=== PATIENT | male | born 1950 | race Caucasian/White ===

== ENCOUNTER 2017-02-14 10:34 | Emergency (ER) | payer OTHER ==
--- NOTE | 2017-02-14 10:51 | ED GI/GU/ABDOMINAL COMPLAINT ---
History of Present Illness General Chief Complaint: Male Genitourinary Problems Stated Complaint: URINE RETENTION PER PT Source: patient, old records Exam Limitations: no limitations Vital Signs & Intake/Output Vital Signs & Intake/Output Vital Signs Date Time Temp Pulse Resp B/P B/P Pulse O2 O2 Flow FiO2 Mean Ox Delivery Rate 02/14 1229 144/64 02/14 1112 79 178/86 100 Room Air 02/14 1040 97.0 125 22 220/103 98 Allergies Coded Allergies: lactose (UNKNOWN 02/14/17) penicillin G (RASH 02/14/17) Reconcile Medications No Known Home Medications Triage Note: PER PT UNABLE TO VOID X 5 HRS, YESTERDAY HAD SOME BURNING AND FREQUENCY BUT DID NOT THINK ANYTHING OF IT. PT VERY ANXIOUS AND PACING IN TRIAGE Triage Nurses Notes Reviewed? yes HPI: Patient is a slight that he had dysuria associated with urinary frequency. Patient woke up at 5:00 in the morning and urinated but has been unable to urinate since then. Patient has drank 3 cups of coffee and multiple glass of water and feels that he needs to be but nothing is coming out. He is now getting a pressure sensation over his bladder. There is no radiation. There are no aggravating or mitigating factors. He rates the pressure sensation at 7 out of 10. Past History Travel History Traveled to [place] past 21 day No Medical History Any Pertinent Medical History? none Neurological: NONE EENT: NONE Cardiovascular: NONE Respiratory: NONE Gastrointestinal: NONE Hepatic: NONE Renal: NONE Musculoskeletal: NONE Psychiatric: NONE Endocrine: NONE Surgical History Surgical History: non-contributory Psychosocial History What is your primary language Serbian Tobacco Use: Never used ETOH Use: denies use Illicit Drug Use: denies illicit drug use Family History Hx Contributory? No Review of Systems Review of Systems Constitutional: Reports: no symptoms. EENTM: Reports: no symptoms. Respiratory: Reports: no symptoms. Cardiovascular: Reports: no symptoms. GI: Reports: see HPI, abdominal pain. Genitourinary: Reports: see HPI, hesitation. Musculoskeletal: Reports: no symptoms. Skin: Reports: no symptoms. Neurological/Psychological: Reports: no symptoms. Hematologic/Endocrine: Reports: no symptoms. Immunologic/Allergic: Reports: no symptoms. All Other Systems: Reviewed and Negative Physical Exam Physical Exam General Appearance: well developed/nourished, alert, awake, anxious, mild distress Head: atraumatic, normal appearance Eyes: Bilateral: PERRL, EOMI. Ears, Nose, Throat, Mouth: hearing grossly normal, moist mucous membrane Neck: normal inspection, supple, full range of motion Respiratory: normal breath sounds, chest non-tender, no respiratory distress, lungs clear Cardiovascular: regular rate/rhythm, normal peripheral pulses Gastrointestinal: normal bowel sounds, soft, non-tender, no organomegaly Back: normal inspection, normal range of motion, NO CVA TENDERNESS Extremities: normal range of motion Neurologic/Psych: no motor/sensory deficits, awake, alert, oriented x 3, normal gait, normal mood/affect Skin: intact, normal color, warm/dry Core Measures ACS in differential dx? No Severe Sepsis Present: No Septic Shock Present: No Progress Differential Diagnosis: urinary retention, UTI/pyelo Plan of Care: Orders Procedure Date/time Status Regular Diet 02/14 D Active Yoder, Insertion/Removal/Asses 02/14 1050 Active CULTURE,URINE 02/14 1050 Active URINALYSIS 02/14 1050 Complete Laboratory Tests 02/14/17 1100: Urine Color YEL, Urine Clarity CLEAR, Urine pH 6.5, Ur Specific [place] 1.010, Urine Protein NEG, Urine Ketones NEG, Urine Nitrite NEG, Urine Bilirubin NEG, Urine Urobilinogen 0.2, Ur Leukocyte Esterase NEG, Ur Microscopic SEDIMENT EXAMINED, Urine RBC 25-50 H, Urine WBC RARE, Urine Hemoglobin MOD H, Urine Glucose NEG Microbiology 02/14 1100 URINE ROUT: Urine Culture - RECD Initial ED EKG: none Comments: 600 mL of urine obtained from full catheter. Patient feeling much better. Patient's blood pressure has improved. Departure Departure Disposition: HOME OR SELF CARE Condition: Stable Clinical Impression Primary Impression: Urinary retention Referrals: DAVID RIVAS MD PATIENT HAS NO PRIMARY CARE DR (PCP/Family) Additional Instructions: RETURN IF SYMPTOMS WORSEN OR FOR ANY CONCERNS Departure Forms: Customer Survey General Discharge Information Prescriptions: Current Visit Scripts No Known Home Medications
[2017-02-14 12:29] VITALS: BP 144/64
== END 2017-02-14 12:40 ==
LOC: ERH 10:34
DX: R33.9 Retention of urine, unspecified (principal)
CPT/HCPCS: 81001; 87086

== ENCOUNTER 2018-02-16 22:10 | Emergency (ER) | payer OTHER ==
[~2018-02-16] VITALS: Ht 185.4 cm; Wt 102.1 kg
[~2018-02-16 22:10] MED LIST: TAMSULOSIN HCL0.4 M1 PO
--- NOTE | 2018-02-17 00:01 | ED GENERAL ADULT ---
History of Present Illness General Chief Complaint: Facial or Head Injury Stated Complaint: OUTSIDE TO TURN GENERATOR ON & SOMETHING HIT HEAD Source: patient, family, old records Exam Limitations: no limitations Vital Signs & Intake/Output Vital Signs & Intake/Output Vital Signs Date Time Temp Pulse Resp B/P B/P Pulse O2 O2 Flow FiO2 Mean Ox Delivery Rate 02/16 2234 200/92 02/16 2230 97.6 91 18 177/112 96 Room Air ED Intake and Output 02/17 0000 02/16 1200 Intake Total Output Total Balance Patient 225 lb Weight Weight Estimated Measurement Method Allergies Coded Allergies: lactose (UNKNOWN 02/14/17) penicillin G (RASH 02/14/17) Reconcile Medications Tamsulosin HCl 0.4 MG CAP.ER.24H 1 CAP PO DAILY BLADDER HEALTH (Reported) Triage Note: RECEIVED 67 YO MALE C/O HE WENT OUTSIDE TO TURN GENERATOR ON DURING STORM AND SOMETHING HIT HIM IN THE HEAD WITH WINGS. PT THINKS IT MAY HAVE BEEN A BAT. NO BITE CAMPBELL NOTED, PT HAS BEEN SCRATCHING HEAD X 2 DAYS, SO UNKNOWN IF THERE IS ANY NEW SCRATCH CAMPBELL. Triage Nurses Notes Reviewed? yes HPI: Patient went outside in the dark to turn on the generator. Patient felt something bump in the head and then fly off. Patient is unsure if it was a bat but he knows that he would need rabies prophylaxis if it is a bat. Patient denies any injury. There is no loss of consciousness. There is no headache. There is no blurry vision. Past History Travel History Traveled to [place] past 21 day No Medical History Any Pertinent Medical History? see below for history Neurological: NONE EENT: NONE Cardiovascular: NONE Respiratory: NONE Gastrointestinal: LACTOSE INTOLERANCE Hepatic: NONE Renal: benign prost hyperplasia Musculoskeletal: NONE Psychiatric: NONE Endocrine: NONE Blood Disorders: NONE Cancer(s): NONE Surgical History Surgical History: non-contributory Psychosocial History What is your primary language Portuguese Tobacco Use: Never used ETOH Use: denies use Illicit Drug Use: denies illicit drug use Family History Hx Contributory? No Review of Systems Review of Systems Constitutional: Reports: no symptoms. Respiratory: Reports: no symptoms. Cardiovascular: Reports: no symptoms. GI: Reports: no symptoms. Immunologic/Allergic: Reports: no symptoms. Physical Exam Physical Exam General Appearance: well developed/nourished, alert, awake, anxious Head: atraumatic, normal appearance Eyes: Bilateral: PERRL, EOMI. Respiratory: normal breath sounds, chest non-tender, no respiratory distress, lungs clear Cardiovascular: regular rate/rhythm, normal peripheral pulses Neurologic/Psych: no motor/sensory deficits, awake, alert, oriented x 3, normal gait, normal mood/affect Core Measures ACS in differential dx? No CVA/TIA Diagnosis: No Sepsis Present: No Sepsis Focused Exam Completed? No Progress Differential Diagnoses I considered the following diagnoses in my evaluation of the patient: [Possible bat exposure] Plan of Care: Current Medications Sig/Ziggy Start time Last Medication Dose Stop Time Status Admin Rabies Immune 2,000 UNITS ONCE ONE 02/17 2345 AC Globulin 02/17 2346 (Rabies Immune Globlulin Inj) Rabies Vaccine 1 SYR ONCE ONE 02/17 2345 AC (Rabies (Vaccine) 02/17 2346 Inj (1ML)) Initial ED EKG: none Comments: Discussed with the patient that he does not require the radius prophylaxis. Patient is very concerned about rabies. Patient's primary care physician was contacted and she recommends the rabies prophylaxis just in case. Departure Departure Disposition: HOME OR SELF CARE Condition: Stable Clinical Impression Primary Impression: Encounter for prophylactic rabies immune globin Referrals: Unknown (PCP) Additional Instructions: Today would be considered a 0. Return on day 3, 7 and 14 for your additional 3 shots. Return sooner for any concerns. Departure Forms: Customer Survey General Discharge Information Critical Care Note Critical Care Note Critical Care Time: non-applicable
[2018-02-17 01:29] VITALS: BP 185/98
== END 2018-02-17 01:31 ==
LOC: ERH 22:10
DX: Z20.3 Contact with and (suspected) exposure to rabies (principal)
CPT/HCPCS: 90376; 90471

== ENCOUNTER 2018-02-19 22:13 | Emergency (ER) | payer OTHER ==
[2018-02-19 22:20] VITALS: BP 186/100
--- NOTE | 2018-02-19 22:46 | ED GENERAL ADULT ---
History of Present Illness General Chief Complaint: General Adult Stated Complaint: 2ND ROUND FOR RABIES VACCINE Source: patient Exam Limitations: no limitations Vital Signs & Intake/Output Vital Signs & Intake/Output Vital Signs Date Time Temp Pulse Resp B/P B/P Pulse O2 O2 Flow FiO2 Mean Ox Delivery Rate 02/19 2220 97.0 88 20 186/100 98 Room Air Allergies Coded Allergies: lactose (UNKNOWN 02/14/17) penicillin G (RASH 02/14/17) Reconcile Medications Tamsulosin HCl 0.4 MG CAP.ER.24H 1 CAP PO DAILY BLADDER HEALTH (Reported) Triage Note: PER PT HAD 1ST SHOT ON THURSDAY EARLY AM ?0100. HERE FRO 2NND SHOT Triage Nurses Notes Reviewed? yes Onset: Abrupt Duration: day(s): (3), better Timing: single episode today Injury Environment: home Severity: mild HPI: 6 he 7-year-old male presents for his second rabies shot. He was seen here 3 days ago after a bat flew into his head. He is unsure if he was bitten. Patient denies any side effects to the initial rabies vaccine he's feeling well he has no concerns. Past History Travel History Traveled to [place] past 21 day No Medical History Any Pertinent Medical History? see below for history Neurological: NONE EENT: NONE Cardiovascular: NONE Respiratory: NONE Gastrointestinal: LACTOSE INTOLERANCE Hepatic: NONE Renal: benign prost hyperplasia Musculoskeletal: NONE Psychiatric: NONE Endocrine: NONE Blood Disorders: NONE Cancer(s): NONE Surgical History Surgical History: non-contributory Psychosocial History What is your primary language Pakistani Tobacco Use: Never used Family History Hx Contributory? No Review of Systems Review of Systems Constitutional: Reports: no symptoms. EENTM: Reports: no symptoms. Respiratory: Reports: no symptoms. Cardiovascular: Reports: no symptoms. GI: Reports: no symptoms. Genitourinary: Reports: no symptoms. Musculoskeletal: Reports: no symptoms. Skin: Reports: no symptoms. Neurological/Psychological: Reports: no symptoms. Hematologic/Endocrine: Reports: no symptoms. Immunologic/Allergic: Reports: no symptoms. All Other Systems: Reviewed and Negative Physical Exam Physical Exam General Appearance: well developed/nourished, no apparent distress, alert, awake Head: atraumatic, normal appearance Eyes: Bilateral: normal appearance, EOMI. Ears, Nose, Throat: hearing grossly normal Neck: normal inspection, full range of motion Respiratory: no respiratory distress Extremities: normal inspection, normal range of motion, no edema Neurologic/Psych: no motor/sensory deficits, awake, alert, oriented x 3, normal gait Skin: intact, normal color, warm/dry Core Measures ACS in differential dx? No CVA/TIA Diagnosis: No Sepsis Present: No Sepsis Focused Exam Completed? No Progress Differential Diagnoses I considered the following diagnoses in my evaluation of the patient: [Post exposure prophylaxis of rabies] Plan of Care: Current Medications Sig/Ziggy Start time Last Medication Dose Stop Time Status Admin Rabies Vaccine 1 SYR ONCE ONE 02/19 2245 AC (Rabies (Vaccine) 02/19 2246 Inj (1ML)) Patient is here for his second rabies vaccine. He is feeling well he has no concerns she denies any side effects from initial vaccination. Rabies vaccine ordered. The patient return on day 7 discussed return precautions patient agrees the plan Initial ED EKG: none Departure Departure Disposition: HOME OR SELF CARE Condition: Stable Clinical Impression Primary Impression: Rabies, need for prophylactic vaccination against Referrals: Patient Has No Primary Care Dr (PCP/Family) Additional Instructions: return for your 3rd rabies shot on day 7. return sooner with any concerns. Departure Forms: Customer Survey General Discharge Information Critical Care Note Critical Care Note Critical Care Time: non-applicable
== END 2018-02-19 22:58 ==
LOC: ERH 22:13
DX: Z20.3 Contact with and (suspected) exposure to rabies (principal)
CPT/HCPCS: 90471; 99281

== ENCOUNTER 2018-05-08 08:43 | Observation (INO) | payer OTHER ==
[~2018-05-08] VITALS: Ht 185.4 cm; Wt 104.3 kg
[~2018-05-08 08:43] MED LIST changes: +COZAAR50 M1 PO
--- NOTE | 2018-05-08 09:24 | ED GI/GU/ABDOMINAL COMPLAINT ---
History of Present Illness General Chief Complaint: Abdominal Pain/Flank Pain Stated Complaint: LFT ABD PAIN Source: patient Exam Limitations: no limitations Vital Signs & Intake/Output Vital Signs & Intake/Output Vital Signs Date Time Temp Pulse Resp B/P B/P Pulse O2 O2 Flow FiO2 Mean Ox Delivery Rate 05/08 1454 100.8 77 18 165/81 96 05/08 0852 97.1 78 18 188/96 98 Room Air Allergies Coded Allergies: lactose (LACTOSE INTOLERANT 05/08/18) penicillin G (RASH 02/14/17) Reconcile Medications Acetaminophen (Unknown Strength) TABLET (Unknown Dose) PO ONCE PAIN (Reported ) Bismuth Subsalicylate (Pepto-Bismol) 262 MG/15 ML ORAL.SUSP 45 ML PO ONCE GI (Reported) Lactobacillus Acidophilus (Probiotic) 10 BILLION CELL CAPSULE 1 CAP PO DAILY PROBIOTIC (Reported) Losartan Potassium 100 MG TABLET 1 TAB PO DAILY BP (Reported) Multivitamin/Iron/Folic Acid (Centrum Adults Tablet) 18 MG IRON-400 MCG TABLET 1 TAB PO DAILY SUPPLEMENT (Reported) Oxymetazoline HCl (Afrin) 0.05 % MIST 2 SPRAY NASB ONCE NASAL CONGESTION ( Reported) Tamsulosin HCl (Flomax) 0.4 MG CAP.ER.24H 2 CAP PO QHS (Reported) Triage Note: PT STATES THAT HE STARTED WITH LUQ PAIN THAT RADIATES INTO HIS BACK THAT STARTED LAST PM, DENIES URINARY SYMPTOMS . POSITIVE NAUSEA Triage Nurses Notes Reviewed? yes Onset: Abrupt Duration: day(s): (1), constant, getting worse Timing: recent history Quality/Severity: moderate Location: left flank, left lower quadrant HPI: 67-year-old male with no history of abdominal surgery comes in with left lower abdominal pain and left flank pain. Patient reports her symptoms started on the plane ride home from [place]. He is unsure whether or not the pain was sudden onset. It is sharp. Severe nature. Continuous. Patient has not had a bowel movement today. Denies any urinary symptoms. Nothing seems to make the symptoms better or worse. He comes in for further evaluation. He denies any chest pain shortness of breath. (Elpidio Currie) Past History Travel History Traveled to [place] past 21 day No Medical History Any Pertinent Medical History? see below for history Neurological: NONE EENT: NONE Cardiovascular: NONE Respiratory: NONE Gastrointestinal: LACTOSE INTOLERANCE Hepatic: NONE Renal: benign prost hyperplasia Musculoskeletal: NONE Psychiatric: NONE Endocrine: NONE Blood Disorders: NONE Cancer(s): NONE Surgical History Surgical History: non-contributory Psychosocial History What is your primary language Hungarian Tobacco Use: Never used ETOH Use: denies use Illicit Drug Use: denies illicit drug use Family History Hx Contributory? No (Elpidio Currie) Review of Systems Review of Systems Constitutional: Reports: no symptoms. EENTM: Reports: no symptoms. Respiratory: Reports: no symptoms. Cardiovascular: Reports: no symptoms. GI: Reports: see HPI. Genitourinary: Reports: no symptoms. Musculoskeletal: Reports: no symptoms. Skin: Reports: no symptoms. Neurological/Psychological: Reports: no symptoms. Hematologic/Endocrine: Reports: no symptoms. Immunologic/Allergic: Reports: no symptoms. All Other Systems: Reviewed and Negative (Elpidio Currie) Physical Exam Physical Exam General Appearance: well developed/nourished, alert, awake, mild distress Head: atraumatic, normal appearance Eyes: Bilateral: normal appearance. Ears, Nose, Throat, Mouth: hearing grossly normal, moist mucous membrane Neck: normal inspection Respiratory: no respiratory distress Gastrointestinal: soft, tenderness Back: normal inspection Extremities: normal range of motion Neurologic/Psych: awake, alert, oriented x 3 Skin: intact, normal color Core Measures ACS in differential dx? No Sepsis Present: No Sepsis Focused Exam Completed? No (Elpidio Currie) Progress Differential Diagnosis: appendicitis, cholecystitis, diverticulitis, gastritis, ischemic bowel, pancreatitis, prostatitis, PUD/GERD, SBO, ureterolithiasis, UTI/ pyelo Plan of Care: Orders Procedure Date/time Status TROPONIN LEVEL 05/08 955 Complete EKG 05/08 924 Active LIPASE 05/08 919 Complete LACTIC ACID 05/08 919 Complete COMPREHENSIVE METABOLIC PANEL 05/08 919 Complete CBC WITHOUT DIFFERENTIAL 05/08 919 Complete URINALYSIS 05/08 851 Complete Laboratory Tests 05/08/18 1219: Lactic Acid Cancelled 05/08/18 0955: Anion Gap 6, Estimated GFR > 60, BUN/Creatinine Ratio 24.3, Glucose 101 H, Lactic Acid 1.9, Calcium 9.8, Total Bilirubin 0.5, AST 23, ALT 26, Alkaline Phosphatase 67, Troponin I < 0.01, Total Protein 7.0, Albumin 4.3, Globulin 2.7, Albumin/Globulin Ratio 1.6, Lipase 49, CBC w Diff MAN DIFF ORDERED, RBC 4.94, MCV 86.9, MCH 29.1, MCHC 33.5, RDW 14.6 H, MPV 8.6, Gran % 87.5 H, Lymphocytes % 5.7 L, Monocytes % 6.5, Eosinophils % 0.2, Basophils % 0.1, Absolute Granulocytes 13.1 H, Absolute Lymphocytes 0.9 L, Absolute Monocytes 1.0 H, Absolute Eosinophils 0, Absolute Basophils 0, Platelet Estimate VERIFIED BY SMEAR, Anisocytosis 1+ 05/08/18 0930: Urinalysis LIGHT H, Urine Color YEL, Urine Clarity CLEAR, Urine pH 7.0, Ur Specific [place] 1.020, Urine Protein NEG, Urine Ketones NEG, Urine Nitrite NEG, Urine Bilirubin NEG, Urine Urobilinogen 0.2, Ur Leukocyte Esterase NEG, Ur Microscopic SEDIMENT EXAMINED, Urine RBC 1-3, Ur Epithelial Cells RARE, Urine Mucus RARE, Urine Hemoglobin TRACE-INTACT H, Urine Glucose NEG 05/08/18 0924: Troponin I Cancelled Diagnostic Imaging: Viewed by Me: CT Scan. Discussed w/RAD: CT Scan. Radiology Impression: PATIENT: OLESYA FRANCIS PRESENT AGE: 67 PATIENT ACCOUNT NO: [id number] : 50 LOCATION: [facility] ORDERING PHYSICIAN: Elpidio BAY SERVICE DATE: 05/08/18 EXAM TYPE: CAT - CT ABD & PELVIS W/O IV CONTRAS EXAMINATION: CT ABDOMEN AND PELVIS WITHOUT CONTRAST CLINICAL INFORMATION: 67-year-old male with left lower quadrant and left flank pain. COMPARISON: 08/16/2017 TECHNIQUE: Multidetector volumetric imaging was performed from the superior aspect of the liver through the pubic symphysis. Sagittal and coronal reformatted images were obtained on the technologist's workstation. DLP: 1161 mGy-cm FINDINGS: LUNG BASES: Minimal atelectasis in dependent aspect of each lower lobe. Left coronary artery atherosclerotic calcification. No pericardial or pleural effusion. LIVER, GALLBLADDER, AND BILIARY TREE: Liver has normal size and contour. The cysts at the hepatic dome and left hepatic lobe measure up to 1.1 cm maximum dimension. No suspicious liver lesion or intrahepatic bile duct dilatation. Gallbladder is physiologically distended. The lumen of the gallbladder is slightly heterogeneous; this suggests possibility of noncalcified stones. Gallbladder wall appears slightly thickened and there is subtle haziness of the surrounding pericholecystic fat. PANCREAS: Unremarkable. SPLEEN: Unremarkable. ADRENAL GLANDS: Unremarkable. KIDNEYS AND URETERS: Kidneys are normal in size. No nephrolithiasis or hydronephrosis. Bilateral renal cortical cysts. Findings include an old 1 cm hyperdense cyst at the upper pole of the left kidney. The ureters are unremarkable. BLADDER: The base of the bladder is compressed by the large prostate gland. No bladder calculi. GASTROINTESTINAL TRACT: Loops of bowel are normal in caliber. Appendix is normal. There are a few diverticula of the transverse colon. Diverticulosis of descending and sigmoid colon, as well, without diverticulitis. No ascites or pneumoperitoneum. ABDOMINAL WALL: Minimal protrusion of fat into the umbilicus. No acute findings within the abdominal wall. LYMPH NODES: Normal. VASCULAR: Mild atherosclerosis of the abdominal aorta without aneurysm. PELVIC VISCERA: Large prostate gland measures approximately 7 x 6.5 x 9 cm. No pelvic free fluid. OSSEOUS STRUCTURES: Mild dextrocurvature of the degenerated lumbar spine. Chronic degenerative disc disease of L2-L3, L3-L4 and L4-L5. No aggressive osseous lesions. IMPRESSION: - No evidence of urolithiasis or urinary tract obstruction. - Colonic diverticulosis without diverticulitis. -Possible noncalcified stones within the lumen of the gallbladder. Gallbladder wall appears mildly thickened and there is subtle haziness of pericholecystic fat. These findings require clinical correlation. The provided history is that of left-sided pain. However, if the patient has right-sided pain (particularly a Alan's sign), then acute cholecystitis should be considered. Recommend ultrasound evaluation of the gallbladder. - Markedly enlarged prostate gland. DICTATED BY: Alejandro Queen MD DATE/TIME DICTATED:01/20 GRANTS OFFICER:DEEJAY DATE/TIME TRANSCRIBED:05/08/181001 CONFIDENTIAL, DO NOT COPY WITHOUT APPROPRIATE AUTHORIZATION. <Electronically signed in Other Vendor System> SIGNED BY: Alejandro Queen MD 05/08/18 1016, PATIENT: OLESYA FRANCIS PRESENT AGE: 67 PATIENT ACCOUNT NO: [id number] : 50 LOCATION: [facility] ORDERING PHYSICIAN: Elpidio BAY SERVICE DATE: 05/08/18 EXAM TYPE: US - US-LIMITED ABDOMEN EXAMINATION: US ABDOMEN LIMITED CLINICAL INFORMATION: Abdominal pain with abnormal gallbladder on CT scan.. COMPARISON: CT scan of same day TECHNIQUE: Real-time imaging of the right upper quadrant abdominal viscera. FINDINGS: PANCREAS: No abnormality appreciated however evaluation is limited due to large body habitus. LIVER: Diffusely increased in echogenicity consistent with fatty infiltration of the liver. No focal mass or intrahepatic bile duct dilatation is seen. A cyst seen on CT near the dome is not appreciated on this study. GALLBLADDER: Cholelithiasis is present with gallbladder wall measuring 4 mm in diameter and with some fluid noted within the wall. No pericholecystic fluid is appreciated. No definite tenderness to palpation was elicited. COMMON BILE DUCT: Normal in caliber measuring 0.2 cm in diameter. RIGHT KIDNEY: No hydronephrosis. No renal calculi or solid focal parenchymal lesions. 2 upper pole cysts are present 1 measuring 3.5 cm in maximum dimension and the other measuring 2.8 cm in maximum dimension. The kidney measures 12.6 cm in maximum dimension. FREE FLUID: None. IMPRESSION: Cholelithiasis with gallbladder wall thickening and fluid within the gallbladder wall consistent with acute cholecystitis however patient does not have tenderness to palpation overlying the gallbladder however patient is medicated. Fatty infiltration of the liver. DICTATED BY: Stuart Blake MD DATE/TIME DICTATED:05/08/181149 GRANTS OFFICER:DEEJAY DATE/TIME TRANSCRIBED:05/08/181149 CONFIDENTIAL, DO NOT COPY WITHOUT APPROPRIATE AUTHORIZATION. <Electronically signed in Other Vendor System> SIGNED BY: Stuart Blake MD 05/08/18 1200 Initial ED EKG: none Comments: 05/08/2018 3:58:[address] otero. Patient was seen and evaluated by surgical PA. Patient will be brought to the operating room. (Leighton BAY,Elpidio) Departure Departure Disposition: STILL A PATIENT Condition: Stable Clinical Impression Primary Impression: Acute cholecystitis Referrals: Mario TRIPATHI,Chico Lewis (PCP/Family) Departure Forms: Customer Survey General Discharge Information OR/GI Note Spoke With: Andrae Otero DO ED Treatment Decision: OLESYA FRANCIS requires urgent operative management or an emergent procedure that cannot be performed in the Emergency Room setting. Transport To: [facility] (Elpidio Currie) Departure Comments I've seen and personally examined the patient and I agree with the PAs evaluation (Bro Garrett DO) Critical Care Note Critical Care Note Critical Care Time: 30-74 min (45) (Elpidio Currie)
[2018-05-08 10:15] LABS: ABSOLUTE BASOPHIL COUNT 0 /CUMM (0.0-0.2); ABSOLUTE EOSINOPHIL COUNT 0 /CUMM (0.0-0.7); ABSOLUTE GRANULOCYTE CT 13.1 /CUMM (1.4-6.5); ABSOLUTE LYMPH COUNT 0.9 /CUMM (1.2-3.4); BASOPHIL % 0.1 % (0.0-2.0); EOSINOPHIL % 0.2 % (0-5); GRANULOCYTE % 87.5 % (42.2-75.2); HEMATOCRIT 42.9 % (42-52); MEAN CORPUSCULAR HGB 29.1 PG (27.0-31.0); MEAN CORPUSCULAR HGB CONC 33.5 G/DL (33.0-37.0); MEAN CORPUSCULAR VOLUME 86.9 FL (80.0-94.0); MEAN PLATELET VOLUME 8.6 FL (7.4-10.4); PLATELET COUNT 234 /CUMM (130-400); RBC DISTRIBUTION WIDTH 14.6 % (11.5-14.5); RED BLOOD CELL CT 4.94 /CUMM (4.70-6.10)
--- NOTE | 2018-05-08 10:16 | CT SCAN REPORT ---
EXAMINATION: CT ABDOMEN AND PELVIS WITHOUT CONTRAST CLINICAL INFORMATION: 67-year-old male with left lower quadrant and left flank pain. COMPARISON: 08/16/2017 TECHNIQUE: Multidetector volumetric imaging was performed from the superior aspect of the liver through the pubic symphysis. Sagittal and coronal reformatted images were obtained on the technologist's workstation. DLP: 1161 mGy-cm FINDINGS: LUNG BASES: Minimal atelectasis in dependent aspect of each lower lobe. Left coronary artery atherosclerotic calcification. No pericardial or pleural effusion. LIVER, GALLBLADDER, AND BILIARY TREE: Liver has normal size and contour. The cysts at the hepatic dome and left hepatic lobe measure up to 1.1 cm maximum dimension. No suspicious liver lesion or intrahepatic bile duct dilatation. Gallbladder is physiologically distended. The lumen of the gallbladder is slightly heterogeneous; this suggests possibility of noncalcified stones. Gallbladder wall appears slightly thickened and there is subtle haziness of the surrounding pericholecystic fat. PANCREAS: Unremarkable. SPLEEN: Unremarkable. ADRENAL GLANDS: Unremarkable. KIDNEYS AND URETERS: Kidneys are normal in size. No nephrolithiasis or hydronephrosis. Bilateral renal cortical cysts. Findings include an old 1 cm hyperdense cyst at the upper pole of the left kidney. The ureters are unremarkable. BLADDER: The base of the bladder is compressed by the large prostate gland. No bladder calculi. GASTROINTESTINAL TRACT: Loops of bowel are normal in caliber. Appendix is normal. There are a few diverticula of the transverse colon. Diverticulosis of descending and sigmoid colon, as well, without diverticulitis. No ascites or pneumoperitoneum. ABDOMINAL WALL: Minimal protrusion of fat into the umbilicus. No acute findings within the abdominal wall. LYMPH NODES: Normal. VASCULAR: Mild atherosclerosis of the abdominal aorta without aneurysm. PELVIC VISCERA: Large prostate gland measures approximately 7 x 6.5 x 9 cm. No pelvic free fluid. OSSEOUS STRUCTURES: Mild dextrocurvature of the degenerated lumbar spine. Chronic degenerative disc disease of L2-L3, L3-L4 and L4-L5. No aggressive osseous lesions. IMPRESSION: - No evidence of urolithiasis or urinary tract obstruction. - Colonic diverticulosis without diverticulitis. -Possible noncalcified stones within the lumen of the gallbladder. Gallbladder wall appears mildly thickened and there is subtle haziness of pericholecystic fat. These findings require clinical correlation. The provided history is that of left-sided pain. However, if the patient has right-sided pain (particularly a Alan's sign), then acute cholecystitis should be considered. Recommend ultrasound evaluation of the gallbladder. - Markedly enlarged prostate gland.
--- NOTE | 2018-05-08 12:00 | ULTRASOUND REPORT ---
EXAMINATION: US ABDOMEN LIMITED CLINICAL INFORMATION: Abdominal pain with abnormal gallbladder on CT scan.. COMPARISON: CT scan of same day TECHNIQUE: Real-time imaging of the right upper quadrant abdominal viscera. FINDINGS: PANCREAS: No abnormality appreciated however evaluation is limited due to large body habitus. LIVER: Diffusely increased in echogenicity consistent with fatty infiltration of the liver. No focal mass or intrahepatic bile duct dilatation is seen. A cyst seen on CT near the dome is not appreciated on this study. GALLBLADDER: Cholelithiasis is present with gallbladder wall measuring 4 mm in diameter and with some fluid noted within the wall. No pericholecystic fluid is appreciated. No definite tenderness to palpation was elicited. COMMON BILE DUCT: Normal in caliber measuring 0.2 cm in diameter. RIGHT KIDNEY: No hydronephrosis. No renal calculi or solid focal parenchymal lesions. 2 upper pole cysts are present 1 measuring 3.5 cm in maximum dimension and the other measuring 2.8 cm in maximum dimension. The kidney measures 12.6 cm in maximum dimension. FREE FLUID: None. IMPRESSION: Cholelithiasis with gallbladder wall thickening and fluid within the gallbladder wall consistent with acute cholecystitis however patient does not have tenderness to palpation overlying the gallbladder however patient is medicated. Fatty infiltration of the liver.
--- NOTE | 2018-05-08 14:16 | History & Physical Pre-Op ---
Liya Stuart 05/08/18 1412: General Information and HPI MD Statement: I have seen and personally examined OLESYA FRANCIS and documented this H&P. The patient is a 67 year old M who presented with a patient stated chief complaint of [abdominal pain]. History of Present Illness: This 67 year old male with pmh significant for hypertension and bph, presents with abdominal pain that started last night around 7pm while flying home from [place]. He reports mostly left upper abdominal pain and back pain. He has some associated nausea without vomiting, and also chills. He believes he may have had one previous episode about a year ago, resulting in an ER visit. Currently he denies dizziness. No shortness of breath. No chest pains. Baseline "urinary issues" related to his BPH, but no dysuria. He has not had anything to eat or drink since early this morning. Allergies/Medications Allergies: Coded Allergies: lactose (LACTOSE INTOLERANT 05/08/18) penicillin G (RASH 02/14/17) Home Med list Acetaminophen (Unknown Strength) TABLET (Unknown Dose) PO ONCE PAIN (Reported ) Bismuth Subsalicylate (Pepto-Bismol) 262 MG/15 ML ORAL.SUSP 45 ML PO ONCE GI (Reported) Lactobacillus Acidophilus (Probiotic) 10 BILLION CELL CAPSULE 1 CAP PO DAILY PROBIOTIC (Reported) Losartan Potassium 100 MG TABLET 1 TAB PO DAILY BP (Reported) Multivitamin/Iron/Folic Acid (Centrum Adults Tablet) 18 MG IRON-400 MCG TABLET 1 TAB PO DAILY SUPPLEMENT (Reported) Oxymetazoline HCl (Afrin) 0.05 % MIST 2 SPRAY NASB ONCE NASAL CONGESTION ( Reported) Tamsulosin HCl (Flomax) 0.4 MG CAP.ER.24H 2 CAP PO QHS (Reported) Past History Medical History Neurological: NONE EENT: NONE Cardiovascular: hypertension Respiratory: NONE Gastrointestinal: LACTOSE INTOLERANCE Hepatic: NONE Renal: benign prost hyperplasia Musculoskeletal: NONE Psychiatric: NONE Endocrine: NONE Blood Disorders: NONE Cancer(s): NONE Surgical History Pertinent Surgical History: non-contributory Past Family/Social History Family History Relations & Conditions if any FATHER, , Age 95. Prostate cancer in father MOTHER, , Age 60+. 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 uncomfortable. no acute distress. Skin - warm, dry, and smooth. no rashes or jaundice appreciated. Lungs - clear bilaterally. no w/r/r. Cardiac - s1s2. reg. Abdomen - soft. right upper quadrant tenderness appreciated. not diffusely tender. Extremities - warm bilaterally. no c/c/e. calves soft and nontender b/l. Neuro - speech smooth and coordinated. no focal deficits. no motor / sensory deficits. Last 24 Hrs of Labs/Artie: Laboratory Tests 05/08/18 1219: Lactic Acid Cancelled 05/08/18 0955: Anion Gap 6, Estimated GFR > 60, BUN/Creatinine Ratio 24.3, Glucose 101 H, Lactic Acid 1.9, Calcium 9.8, Total Bilirubin 0.5, AST 23, ALT 26, Alkaline Phosphatase 67, Troponin I < 0.01, Total Protein 7.0, Albumin 4.3, Globulin 2.7, Albumin/Globulin Ratio 1.6, Lipase 49, CBC w Diff MAN DIFF ORDERED, RBC 4.94, MCV 86.9, MCH 29.1, MCHC 33.5, RDW 14.6 H, MPV 8.6, Gran % 87.5 H, Lymphocytes % 5.7 L, Monocytes % 6.5, Eosinophils % 0.2, Basophils % 0.1, Absolute Granulocytes 13.1 H, Absolute Lymphocytes 0.9 L, Absolute Monocytes 1.0 H, Absolute Eosinophils 0, Absolute Basophils 0, Platelet Estimate VERIFIED BY SMEAR, Anisocytosis 1+ 05/08/18 0930: Urinalysis LIGHT H, Urine Color YEL, Urine Clarity CLEAR, Urine pH 7.0, Ur Specific [place] 1.020, Urine Protein NEG, Urine Ketones NEG, Urine Nitrite NEG, Urine Bilirubin NEG, Urine Urobilinogen 0.2, Ur Leukocyte Esterase NEG, Ur Microscopic SEDIMENT EXAMINED, Urine RBC 1-3, Ur Epithelial Cells RARE, Urine Mucus RARE, Urine Hemoglobin TRACE-INTACT H, Urine Glucose NEG 05/08/18 0924: Troponin I Cancelled Diagnostic Data Other Results EXAM TYPE: US - US-LIMITED ABDOMEN EXAMINATION: US ABDOMEN LIMITED CLINICAL INFORMATION: Abdominal pain with abnormal gallbladder on CT scan.. COMPARISON: CT scan of same day TECHNIQUE: Real-time imaging of the right upper quadrant abdominal viscera. FINDINGS: PANCREAS: No abnormality appreciated however evaluation is limited due to large body habitus. LIVER: Diffusely increased in echogenicity consistent with fatty infiltration of the liver. No focal mass or intrahepatic bile duct dilatation is seen. A cyst seen on CT near the dome is not appreciated on this study. GALLBLADDER: Cholelithiasis is present with gallbladder wall measuring 4 mm in diameter and with some fluid noted within the wall. No pericholecystic fluid is appreciated. No definite tenderness to palpation was elicited. COMMON BILE DUCT: Normal in caliber measuring 0.2 cm in diameter. RIGHT KIDNEY: No hydronephrosis. No renal calculi or solid focal parenchymal lesions. 2 upper pole cysts are present 1 measuring 3.5 cm in maximum dimension and the other measuring 2.8 cm in maximum dimension. The kidney measures 12.6 cm in maximum dimension. FREE FLUID: None. IMPRESSION: Cholelithiasis with gallbladder wall thickening and fluid within the gallbladder wall consistent with acute cholecystitis however patient does not have tenderness to palpation overlying the gallbladder however patient is medicated. Fatty infiltration of the liver. DICTATED BY: Stuart Blake MD DATE/TIME DICTATED:05/08/181149 JEWEL WAXER:DEEJAY DATE/TIME TRANSCRIBED:05/08/181149 EXAMINATION: CT ABDOMEN AND PELVIS WITHOUT CONTRAST CLINICAL INFORMATION: 67-year-old male with left lower quadrant and left flank pain. COMPARISON: 08/16/2017 TECHNIQUE: Multidetector volumetric imaging was performed from the superior aspect of the liver through the pubic symphysis. Sagittal and coronal reformatted images were obtained on the technologist's workstation. DLP: 1161 mGy-cm FINDINGS: LUNG BASES: Minimal atelectasis in dependent aspect of each lower lobe. Left coronary artery atherosclerotic calcification. No pericardial or pleural effusion. LIVER, GALLBLADDER, AND BILIARY TREE: Liver has normal size and contour. The cysts at the hepatic dome and left hepatic lobe measure up to 1.1 cm maximum dimension. No suspicious liver lesion or intrahepatic bile duct dilatation. Gallbladder is physiologically distended. The lumen of the gallbladder is slightly heterogeneous; this suggests possibility of noncalcified stones. Gallbladder wall appears slightly thickened and there is subtle haziness of the surrounding pericholecystic fat. PANCREAS: Unremarkable. SPLEEN: Unremarkable. ADRENAL GLANDS: Unremarkable. KIDNEYS AND URETERS: Kidneys are normal in size. No nephrolithiasis or hydronephrosis. Bilateral renal cortical cysts. Findings include an old 1 cm hyperdense cyst at the upper pole of the left kidney. The ureters are unremarkable. BLADDER: The base of the bladder is compressed by the large prostate gland. No bladder calculi. GASTROINTESTINAL TRACT: Loops of bowel are normal in caliber. Appendix is normal. There are a few diverticula of the transverse colon. Diverticulosis of descending and sigmoid colon, as well, without diverticulitis. No ascites or pneumoperitoneum. ABDOMINAL WALL: Minimal protrusion of fat into the umbilicus. No acute findings within the abdominal wall. LYMPH NODES: Normal. VASCULAR: Mild atherosclerosis of the abdominal aorta without aneurysm. PELVIC VISCERA: Large prostate gland measures approximately 7 x 6.5 x 9 cm. No pelvic free fluid. OSSEOUS STRUCTURES: Mild dextrocurvature of the degenerated lumbar spine. Chronic degenerative disc disease of L2-L3, L3-L4 and L4-L5. No aggressive osseous lesions. IMPRESSION: - No evidence of urolithiasis or urinary tract obstruction. - Colonic diverticulosis without diverticulitis. -Possible noncalcified stones within the lumen of the gallbladder. Gallbladder wall appears mildly thickened and there is subtle haziness of pericholecystic fat. These findings require clinical correlation. The provided history is that of left-sided pain. However, if the patient has right-sided pain (particularly a Alan's sign), then acute cholecystitis should be considered. Recommend ultrasound evaluation of the gallbladder. - Markedly enlarged prostate gland. DICTATED BY: Alejandro Queen MD DATE/TIME DICTATED:05/08/181001 JEWEL WAXER:DEEJAY DATE/TIME TRANSCRIBED:05/08/181001 Assessment/Plan Assessment/Plan: This 67 year old male with history of hypertension and bph presents with acute calculous cholecystitis npo / ivf iv cipro / flagyl to start in ED pain control as needed anti-emetics as needed continue home meds, losartan and flomax hep sc - dvt ppx post-op place in observation status given possibility of discharge to home tomorrow will d/w As Ranked By This Provider Problem List: 1. Hypertension 2. Acute calculous cholecystitis 3. BPH (benign prostatic hyperplasia) 4. Lactose intolerance Copies To: Mario TRIPATHI,Chico Otero DO[facility] 05/08/18 1706: Attending MD Review Statement Attending Statement Attending MD Statement: examined this patient, discuss w/resident/PA/SALES TECHNICIAN HOME THEATER, agreed w/resident/PA/SALES TECHNICIAN HOME THEATER, discussed with family, reviewed EMR data (avail), reviewed images Attending Assessment/Plan: Patient seen and examined, agree with abov. Abdominal pain since last night as far as the patient can remember, no N/V, had similar pain a year ago. Tm 100.8 VSS. Abd-obese, soft, +RUQ pain. Labs-WBC 15, otherwise ok. CT scan/Doreen c/w cholecystitis. NPO/IVF, IV Abx, plan for Lap [place]. D/W patient/family and ED staff.
[2018-05-08] MEDS ORDERED: LOSARTAN POTAS100 M1 PO (14:22)
[2018-05-08] MEDS ORDERED: FLOMAX0.4 M1 PO (14:23)
[2018-05-08] MEDS ORDERED: PROBIOTIC1 EACH PO (14:24)
[2018-05-08] MEDS ORDERED: ACETAMINOPHEN500 M4 PO (14:25)
[2018-05-08] MEDS ORDERED: PEPTO-BISM262 MG/11 PO (14:27)
[2018-05-08] MEDS ORDERED: AFRIN15 ML NASB (14:28)
[2018-05-08] MEDS ORDERED: CENTRUM ADULTS1 EACH PO (14:29)
--- NOTE | 2018-05-08 17:17 | Operative Report ---
Operative/Inv Procedure Report Surgery Date: 05/08/18 Name of Procedure: Laparoscopic Cholecystectomy Pre-Operative Diagnosis: Cholelithiasis/Cholecystitis Post-Operative Diagnosis: Acute calculous gangrenous cholecystitis Estimated Blood Loss: less than 50ml Surgeon/Electrophonic Engineer: Andrae BAY Anesthesia: general endotracheal tube IV Fluids: 1000 cc Drains: 10 Fr RUQ CLARIBEL Drain Specimens: Gallbladder Complications: None Condition: Stable Operative Indication: This is a 67-year-old male who presented to the emergency room with abdominal pain. After appropriate workup was completed the patient was diagnosed with acute cholecystitis. A laparoscopic possible open cholecystectomy was discussed in detail. All risks including but not limited to bleeding, infection, bile leak, and injury to surrounding duct/bowel were discussed in detail. The patient understood everything and decided to proceed. Operative/Procedure Note Note: The patient was brought to the operating room and placed on the operating room table in supine position. Venodyne stockings were placed and adequate general endotracheal anesthesia was obtained. The patient was prepped and draped in standard surgical fashion. We began the procedure by making a 2 cm transverse incision in the infraumbilical crease. The incision was carried down to the fascia, once the fascia was clearly visualized it was picked up between 2 bettye clamps. The fascia was divided in the midline and once we entered the peritoneum 2 stay 0 Vicryl sutures were placed on each side. A 12 mm blunt port was inserted and the abdominal cavity was insufflated to 15 mmHg. A 10 mm 30 laparoscope was introduced and upon initial examination no obvious gross pathology was seen. We did note a markedly distended/necrotic looking gallbladder in the right upper quadrant. Accessory trocars were placed, all 5 mm, one in the epigastrium and 2 in the right upper quadrant (one in the midclavicular line and one in the anterior axillary line, both 2 fingerbreadths below the costal margin). The gallbladder was grasped with the lateralmost trocar and retracted up over the liver. Using the other 2 accessory trocars the infundibulum was grasped and the peritoneum was lysed using blunt dissection and using hook electrocautery. The cystic duct and cystic artery were visualized. The common bile duct was visualized and it was away from our area of dissection. Gallbladder wall appeared gangrenous/necrotic and the cystic duct appeared to have some necrosis as well. The cystic duct and artery were skeletonized and divided between clips, 3 clips to stay and one clip on the gallbladder side for the duct and 2 clips to stay and one clip on the gallbladder side for the artery. The gallbladder was dissected off the liver bed using hook electrocautery maintaining hemostasis. Prior to completely removing the gallbladder off the liver bed we examined the area of dissection no obvious bile leak or bleeding was noted, the clips appeared to be in good position. The gallbladder was completely detached from the liver bed. We switched to a 5 mm laparoscope and a 10 mm Endobag was introduced through the umbilical trocar site. The gallbladder was placed in the bag and removed through the umbilicus. The abdomen was reinsufflated. We switched back to a 10 mm laparoscope and examined our area of dissection. No obvious bile leak or bleeding was noted. The right upper quadrant was irrigated until clear. Due to the necrotic appearance of the cystic a duct a 10 Fr CLARIBEL drain was placed throught the lateral most port site under the liver. All ports were removed under direct visualization, no obvious bleeding was noted. The umbilical trocar site was closed using 0 Vicryl suture. The skin was closed using 4-0 Monocryl. Steri- Strips and dressings were placed. The patient was successfully extubated and transferred to the recovery room in stable condition. The patient tolerated the procedure well with no complications. Findings: Thick walled/necrotic gallbladder, multiple small stones, necrotic cystic duct CC: Mario TRIPATHI,Chico Lewis
--- NOTE | 2018-05-08 17:32 | Patient Discharge Instructions ---
Discharge Instructions General Discharge Information You were seen/treated for: Acute calculous gangrenous cholecystitis You had these procedures: Surgery Date: 05/08/18 Name of Procedure: Laparoscopic Cholecystectomy Watch for these problems: FEVR>101.3, INCREASED PAIN, REDNESS/SWELLING/DRAINAGE, DIZZINESS, SHORTNESS OF BREATH, CHEST PAINS, RECURRENT NAUSEA/VOMITING No bath, but you may shower: Yes Other wound care: OK TO REMOVE OUTER DRESSINGS. LEAVE WHITE STERI STRIPS IN PLACE. DRAIN CARE DIRECTED. KEEP DRAIN IN PLACE. EMPTY, MEASURE ADN RECORD OUTPUT. WILL BE TAKEN OUT AT FOLLOWUP VISIT IN OFFICE Special Instructions: KEEP INCISIONS CLEAN & DRY. SHOWERING IS OK. DO NOT BATHE / SUBMERGE INCISIONS FOR SEVERAL WEEKS. Diet Continue normal diet: Yes Recommended Diet: Low Fat Activity Full Activity/No Limits: No Activity Self Limited: Yes Pounds, do NOT lift more than: 10 Other activity limits: NO HEAVY LIFTING. NO STRENUOUS ACTIVITY. Acute Coronary Syndrome Inclusion Criteria At DC or during hospital stay patient has or had the following: ACS DIAGNOSIS No Discharge Core Measures Meds if any: Prescribed or Continued at Discharge Meds if any: NOT Prescribed or Continued at Discharge Congestive Heart Failure Inclusion Criteria At DC or during hospital stay patient has or had the following: CHF DIAGNOSIS No Discharge Core Measures Meds if any: Prescribed or Continued at Discharge Meds if any: NOT Prescribed or Continued at Discharge Cerebrovascular accident Inclusion Criteria At DC or during hospital stay patient has or had the following: CVA/TIA Diagnosis No Discharge Core Measures Meds if any: Prescribed or Continued at Discharge Meds if any: NOT Prescribed or Continued at Discharge Venous thromboembolism Inclusion Criteria VTE Diagnosis No VTE Type NONE VTE Confirmed by (Test) NONE Discharge Core Measures - Per Current guidelines, there needs to be overlap - treatment for the first 5 days of Warfarin therapy. - If discharged on Warfarin prior to 5 days of - overlap therapy, the patient will need to be - assessed for post discharge needs including - *Post discharge parental anticoagulation - *Warfarin and/or parental anticoagulation education - *Follow up date to check INR post discharge At least 5 days overlap therapy as Inpatient No Meds if any: Prescribed or Continued at Discharge Note: Overlap Therapy is Warfarin and Anticoagulant Meds if any: NOT Prescribed or Continued at Discharge
--- NOTE | 2018-05-08 17:38 | Surg Short-stay <48hrs Dis Sum ---
Visit Information Visit Dates Admission Date: 05/08/18 Discharge Date: 05/09/18 Surgical Short Stay DC Summary Admission Diagnosis: Cholelithiasis/Cholecystitis Final Diagnosis: Acute calculous gangrenous cholecystitis Procedure(s): Surgery Date: 05/08/18 Name of Procedure: Laparoscopic Cholecystectomy Summary/Significant Findings: Presented to the ED on 05/08/18 with acute onset abdominal pain. CT and ultrasound imaging confirmed acute calculous cholecystitis. He was started on IV rocephin / flagyl in the ER, and taken to the OR urgently for laparoscopic cholecystectomy by . Intra-operatively we found acute calculous gangrenous cholecystitis, for which a CLARIBEL drain was left in place intentionally to monitor for potential bile leak. His labs, including liver function tests, were checked the next morning. He was continued on IV rocephin and flagyl post-operatively due to his gangrenous gallbladder and associated intra-abdominal infection risk. His diet was advanced as tolerated. Pain control transitioned from IV to oral medication as able. Observation status placed post-operatively, with the anticipation of discharge to home on post-op day#1. Condition at Discharge: stable Discharge Disposition: home or self care Discharge instructions provided to patient/family: Yes Post discharge follow-up plan: one week follow up with continue oral antibiotics as directed Copies to: Mario TRIPATHI,Chico Lewis
[2018-05-08 18:46] VITALS: BP 130/76
--- NOTE | 2018-05-08 20:01 | PN- General Surgery ---
Subjective Subjective: POST-OP NOTE Reports feeling significantly better. Tolerating clears and eager to eat food. Voided twice already without difficulty. Denies dizziness. No shortness of breath. No chest pains. Objective Vital Signs and I&Os Vital Signs Date Time Temp Pulse Resp B/P B/P Pulse O2 O2 Flow FiO2 Mean Ox Delivery Rate 05/08 184 92 Room Air 05/08 1846 98.6 77 18 130/76 92 Room Air 05/08 1454 100.8 77 18 165/81 96 05/08 0852 97.1 78 18 188/96 98 Room Air Intake & Output 05/08 1600 05/08 0800 05/08 0000 05/07 1600 05/07 0800 05/07 0000 Intake Total Output Total Balance Patient 230 lb Weight Physical Exam: General - alert & oriented x 3. comfortable. no acute distress. Lungs - clear bilaterally. no w/r/r. Cardiac - s1s2. reg. Abdomen - soft. dressings c/d/i. TATIANA drain to suction, with scant serosang drainage. Extremities - warm bilaterally. no c/c/e. calves soft and nontender b/l. athrombics active b/l. Current Medications: Current Medications Sig/Ziggy Start time Last Medication Dose Route Stop Time Status Admin Acetaminophen 1,000 MG Q6 05/08 1800 AC N/A 1 UNIT IV Ceftriaxone Sodium 2,000 MG DAILY 05/09 1200 AC IV 05/09 1201 Ceftriaxone Sodium 1,000 MG ONCE ONE 05/08 1445 DC 05/08 IV 05/08 1446 1450 Ceftriaxone Sodium 0 .STK-MED ONE 05/08 1442 DC .ROUTE Dextrose/Sodium 1,000 ML Q8H 05/08 1730 AC 05/08 Chloride IV 1900 Docusate Sodium 100 MG BID 05/08 2100 AC PO Heparin Sodium 5,000 UNIT Q8 05/08 2200 AC (Porcine) SC Hydromorphone HCl 0 .STK-MED ONE 05/08 1051 DC .ROUTE Hydromorphone HCl 1 MG ONCE ONE 05/08 1045 DC 05/08 IV 05/08 1046 1053 Hydromorphone HCl 0 .STK-MED ONE 05/08 0938 DC .ROUTE Hydromorphone HCl 0.5 MG ONCE ONE 05/08 0930 DC 05/08 IV 05/08 0931 0939 Ketorolac 15 MG Q8P PRN 05/08 1730 AC Tromethamine IV Losartan Potassium 100 MG DAILY 05/09 09 AC PO Metronidazole 500 MG Q8H 05/08 2300 AC N/A 1 UNIT IV 05/09 0759 Metronidazole 500 MG ONCE ONE 05/08 1445 DC 05/08 N/A 1 UNIT IV 05/08 1544 1450 Ondansetron HCl 4 MG Q6P PRN 05/08 1730 AC IV Ondansetron HCl 0 .STK-MED ONE 05/08 1050 DC .ROUTE Ondansetron HCl 4 MG ONCE ONE 05/08 1045 DC 05/08 IV 05/08 1046 1053 Oxycodone HCl 5 MG Q4-6 PRN PRN 05/08 173 AC PO Oxycodone HCl 10 MG Q4-6 PRN PRN 05/08 173 AC PO Pantoprazole Sodium 40 MG DAILY 05/09 900 AC IV Tamsulosin HCl 0.4 MG BID 05/08 2100 AC PO Results Last 48 Hours of Labs: Laboratory Tests 05/08 05/08 1219 0955 Chemistry Sodium (137 - 145 mmol/L) 137 Potassium (3.5 - 5.1 mmol/L) 3.9 Chloride (98 - 107 mmol/L) 98 Carbon Dioxide (22 - 30 mmol/L) 32 H Anion Gap (5 - 16) 6 BUN (9 - 20 mg/dL) 17 Creatinine (0.7 - 1.2 mg/dL) 0.7 Estimated GFR (>60 ml/min) > 60 BUN/Creatinine Ratio (7 - 25 %) 24.3 Glucose (65 - 99 mg/dL) 101 H Lactic Acid (0.7 - 2.1 mmol/L) Cancelled 1.9 Calcium (8.4 - 10.2 mg/dL) 9.8 Total Bilirubin (0.2 - 1.3 mg/dL) 0.5 AST (17 - 59 U/L) 23 ALT (21 - 72 U/L) 26 Alkaline Phosphatase (< 127 U/L) 67 Troponin I (<0.11 ng/ml) < 0.01 Total Protein (6.3 - 8.2 g/dL) 7.0 Albumin (3.5 - 5.0 g/dL) 4.3 Globulin (1.9 - 4.2 gm/dL) 2.7 Albumin/Globulin Ratio (1.1 - 2.2 %) 1.6 Lipase (23 - 300 U/L) 49 Hematology CBC w Diff MAN DIFF ORDERED WBC (4.8 - 10.8 /CUMM) 15.0 H RBC (4.70 - 6.10 /CUMM) 4.94 Hgb (14.0 - 18.0 G/DL) 14.4 Hct (42 - 52 %) 42.9 MCV (80.0 - 94.0 FL) 86.9 MCH (27.0 - 31.0 PG) 29.1 MCHC (33.0 - 37.0 G/DL) 33.5 RDW (11.5 - 14.5 %) 14.6 H Plt Count (130 - 400 /CUMM) 234 MPV (7.4 - 10.4 FL) 8.6 Gran % (42.2 - 75.2 %) 87.5 H Lymphocytes % (20.5 - 51.1 %) 5.7 L Monocytes % (1.7 - 9.3 %) 6.5 Eosinophils % (0 - 5 %) 0.2 Basophils % (0.0 - 2.0 %) 0.1 Absolute Granulocytes (1.4 - 6.5 /CUMM) 13.1 H Absolute Lymphocytes (1.2 - 3.4 /CUMM) 0.9 L Absolute Monocytes (0.10 - 0.60 /CUMM) 1.0 H Absolute Eosinophils (0.0 - 0.7 /CUMM) 0 Absolute Basophils (0.0 - 0.2 /CUMM) 0 Platelet Estimate (ADEQUATE) VERIFIED BY SMEAR Anisocytosis 1+ 05/08 05/08 0930 0924 Chemistry Troponin I Cancelled Urines Urinalysis LIGHT H Urine Color (YEL,AMB,STR) YEL Urine Clarity (CLEAR) CLEAR Urine pH (5.0 - 8.0) 7.0 Ur Specific [place] (1.001 - 1.035) 1.020 Urine Protein (NEG,<30 MG/DL) NEG Urine Ketones (NEG) NEG Urine Nitrite (NEG) NEG Urine Bilirubin (NEG) NEG Urine Urobilinogen (0.1 - 1.0 EU/dl) 0.2 Ur Leukocyte Esterase (NEG) NEG Ur Microscopic SEDIMENT EXAMINED Urine RBC (0 - 5 /HPF) 1-3 Ur Epithelial Cells (NONE,FEW) RARE Urine Mucus (FEW,NONE) RARE Urine Hemoglobin (NEG) TRACE-INTACT H Urine Glucose (N MG/DL) NEG Assessment/Plan Assessment/Plan This 67 year old male with hx htn and bph, is POD#0 s/p laparoscopic cholecystectomy for acute calculous gangrenous cholecystitis, tatiana x 1 advance diet as tolerated pain control as needed continue rocephin x 1 more dose, flagyl x 2, and likely d/c home with oral cipro / flagyl f/u AM labs monitor TATIANA drain output, possibly d/c home with drain tomorrow hep sc - dvt ppx home meds ordered, including flomax and losartan placed in observation status given anticipation for discharge to home tomorrow will d/w Core Measures Venous Thromboembolism VTE Risk Factors Surgery No Mechanical VTE Prophylaxis d/t N/A MechProphylax Ordered No VTE Pharm Prophylaxis d/t NA PharmProphylax ordered
[2018-05-08 21:56] VITALS: BP 162/84
[2018-05-09 02:05] VITALS: BP 146/72
[2018-05-09 06:08] VITALS: BP 152/78
[2018-05-09 07:51] LABS: ABSOLUTE BASOPHIL COUNT 0 /CUMM (0.0-0.2); ABSOLUTE EOSINOPHIL COUNT 0 /CUMM (0.0-0.7); ABSOLUTE GRANULOCYTE CT 14.8 /CUMM (1.4-6.5); ABSOLUTE LYMPH COUNT 0.6 /CUMM (1.2-3.4); ABSOLUTE MONOCYTE COUNT 0.8 /CUMM (0.10-0.60); BASOPHIL % 0 % (0.0-2.0); EOSINOPHIL % 0 % (0-5); GRANULOCYTE % 91.3 % (42.2-75.2); HEMATOCRIT 38.8 % (42-52); MEAN CORPUSCULAR HGB 29.2 PG (27.0-31.0); MEAN CORPUSCULAR VOLUME 88.4 FL (80.0-94.0); PLATELET COUNT 221 /CUMM (130-400); RBC DISTRIBUTION WIDTH 14.7 % (11.5-14.5); RED BLOOD CELL CT 4.39 /CUMM (4.70-6.10)
--- NOTE | 2018-05-09 07:58 | PN- General Surgery ---
See Addendum Subjective Subjective: feeling well, tolerating regular diet for breakfast. no bm. +void. no n/v. no cp/sob. some oob Objective Vital Signs and I&Os Vital Signs Date Time Temp Pulse Resp B/P B/P Pulse O2 O2 Flow FiO2 Mean Ox Delivery Rate 05/09 608 98.0 72 20 152/78 95 05/09 0205 98.2 65 16 146/72 92 05/08 2156 98.3 79 20 162/84 93 Room Air 05/08 2049 79 162/84 05/08 2028 Room Air 05/08 184 92 Room Air 05/08 1846 98.6 77 18 130/76 92 Room Air 05/08 1454 100.8 77 18 165/81 96 05/08 0852 97.1 78 18 188/96 98 Room Air Intake & Output 05/09 0000 05/08 1600 05/08 0805/08 0000 05/07 1600 Intake Total 1100 1760 Output Total 480 525 Balance 620 1235 Intake, IV 1000 1460 Intake, Oral 100 300 Number 0 0 Bowel Movements Output, 30 25 Drainage Output, Urine 450 500 Patient 230 lb 230 lb Weight Physical Exam: gen- nad card- s1s2 rrr pulm- ctab abd- softly dist, +bm, dressings intact- umbilical dressing blood stained. ext- calves soft nt TATIANA: serosang, 30 overnight UO adequate, voiding spont. Results Last 48 Hours of Labs: Laboratory Tests 05/09 05/08 05/08 0700 1219 0955 Chemistry Sodium (137 - 145 mmol/L) Pending 137 Potassium (3.5 - 5.1 mmol/L) Pending 3.9 Chloride (98 - 107 mmol/L) Pending 98 Carbon Dioxide (22 - 30 mmol/L) Pending 32 H Anion Gap (5 - 16) Pending 6 BUN (9 - 20 mg/dL) Pending 17 Creatinine (0.7 - 1.2 mg/dL) Pending 0.7 Estimated GFR (>60 ml/min) > 60 BUN/Creatinine Ratio (7 - 25 %) Pending 24.3 Glucose (65 - 99 mg/dL) Pending 101 H Lactic Acid (0.7 - 2.1 mmol/L) Cancelled 1.9 Calcium (8.4 - 10.2 mg/dL) 9.8 Magnesium Pending Total Bilirubin (0.2 - 1.3 mg/dL) Pending 0.5 Direct Bilirubin Pending AST (17 - 59 U/L) Pending 23 ALT (21 - 72 U/L) Pending 26 Alkaline Phosphatase (< 127 U/L) Pending 67 Troponin I (<0.11 ng/ml) < 0.01 Total Protein (6.3 - 8.2 g/dL) Pending 7.0 Albumin (3.5 - 5.0 g/dL) Pending 4.3 Globulin (1.9 - 4.2 gm/dL) 2.7 Albumin/Globulin Ratio (1.1 - 2.2 %) 1.6 Lipase (23 - 300 U/L) 49 Hematology CBC w Diff Pending MAN DIFF ORDERED WBC (4.8 - 10.8 /CUMM) Pending 15.0 H RBC (4.70 - 6.10 /CUMM) Pending 4.94 Hgb (14.0 - 18.0 G/DL) Pending 14.4 Hct (42 - 52 %) Pending 42.9 MCV (80.0 - 94.0 FL) Pending 86.9 MCH (27.0 - 31.0 PG) Pending 29.1 MCHC (33.0 - 37.0 G/DL) Pending 33.5 RDW (11.5 - 14.5 %) Pending 14.6 H Plt Count (130 - 400 /CUMM) Pending 234 MPV (7.4 - 10.4 FL) Pending 8.6 Gran % (42.2 - 75.2 %) 87.5 H Lymphocytes % (20.5 - 51.1 %) 5.7 L Monocytes % (1.7 - 9.3 %) 6.5 Eosinophils % (0 - 5 %) 0.2 Basophils % (0.0 - 2.0 %) 0.1 Absolute Granulocytes (1.4 - 6.5 /CUMM) 13.1 H Absolute Lymphocytes (1.2 - 3.4 /CUMM) 0.9 L Absolute Monocytes (0.10 - 0.60 /CUMM) 1.0 H Absolute Eosinophils (0.0 - 0.7 /CUMM) 0 Absolute Basophils (0.0 - 0.2 /CUMM) 0 Platelet Estimate (ADEQUATE) VERIFIED BY SMEAR Anisocytosis 1+ 05/08 05/08 0930 0924 Chemistry Troponin I Cancelled Urines Urinalysis LIGHT H Urine Color (YEL,AMB,STR) YEL Urine Clarity (CLEAR) CLEAR Urine pH (5.0 - 8.0) 7.0 Ur Specific [place] (1.001 - 1.035) 1.020 Urine Protein (NEG,<30 MG/DL) NEG Urine Ketones (NEG) NEG Urine Nitrite (NEG) NEG Urine Bilirubin (NEG) NEG Urine Urobilinogen (0.1 - 1.0 EU/dl) 0.2 Ur Leukocyte Esterase (NEG) NEG Ur Microscopic SEDIMENT EXAMINED Urine RBC (0 - 5 /HPF) 1-3 Ur Epithelial Cells (NONE,FEW) RARE Urine Mucus (FEW,NONE) RARE Urine Hemoglobin (NEG) TRACE-INTACT H Urine Glucose (N MG/DL) NEG Assessment/Plan Assessment/Plan A- POD1 sp lap luis for gangrenous cholecystitis, with minimal serosang TATIANA output, stable P- am labs pending reg diet as tolerated hl oob, ambulate, dvt ppx home meds tatiana to self suction dc planning Core Measures Venous Thromboembolism VTE Risk Factors Surgery No Mechanical VTE Prophylaxis d/t N/A MechProphylax Ordered No VTE Pharm Prophylaxis d/t NA PharmProphylax ordered
[2018-05-09 08:06] VITALS: BP 152/78
[2018-05-09 08:39] LABS: WHITE BLOOD CELL COUNT 16.2 /CUMM (4.8-10.8)
[2018-05-09] MEDS ORDERED: PERCOCET 5-3251 EACH PO (13:05)
[2018-05-09] MEDS ORDERED: FLAGYL500 MG PO (13:05)
[2018-05-09] MEDS ORDERED: CIPRO500 M1 PO (13:05)
== END 2018-05-09 14:48 ==
LOC: ERH 08:43 → ER-OR 08:56 → PACUH 17:13 → CANRESERV 17:23 → ENRESERV 17:23 → ENTRNSPT 17:57 → EDTRNSPT 18:34 → EDTRNSPTSTS 18:34 → 2NA 18:39 → CMPTRNSPT 18:46 → ENPENDDIS 05-09 13:08 → 2NA 05-09 14:48
PROVIDERS: Physician Assistant; Physician Assistant Medical
DX: K80.00 Calculus of gallbladder with acute cholecystitis without obstruction (principal); R10.12 Left upper quadrant pain; I10 Essential (primary) hypertension; N40.0 Benign prostatic hyperplasia without lower urinary tract symptoms; E73.9 Lactose intolerance, unspecified
CPT/HCPCS: 1255; 6030; 36592; 74176; 81001; 82436; 93005; 93010; 96372; 96374; 96375; 96376; G0378; J0131; J0696; J1644; J2250; J2405; J3010; J3490; J7042

== ENCOUNTER 2018-05-15 23:44 | Inpatient (IN) | payer OTHER ==
[~2018-05-15] VITALS: Ht 185.4 cm; Wt 107.7 kg
[~2018-05-15 23:44] MED LIST changes: +ACETAMINOPHEN500 M4 PO; +AFRIN15 ML NASB; +CENTRUM ADULTS1 EACH PO; +CIPRO500 M1 PO; +FLAGYL500 MG PO; +FLOMAX0.4 M1 PO; +LOSARTAN POTAS100 M1 PO; +PEPTO-BISM262 MG/11 PO; +PERCOCET 5-3251 EACH PO; +PROBIOTIC1 EACH PO
--- NOTE | 2018-05-16 01:21 | ED GENERAL ADULT ---
History of Present Illness General Chief Complaint: Abdominal Pain/Flank Pain Stated Complaint: PT C/O LT SIDE PAIN S/P SURGERY ? STONE Source: patient, family, old records Exam Limitations: no limitations Vital Signs & Intake/Output Vital Signs & Intake/Output Vital Signs Date Time Temp Pulse Resp B/P B/P Pulse O2 O2 Flow FiO2 Mean Ox Delivery Rate 05/16 0657 98.9 76 20 152/88 95 Room Air 05/16 0458 80 160/82 05/16 0347 98.3 78 20 185/84 05/16 0302 78 20 185/84 98 05/16 0148 98.3 83 18 182/85 98 Room Air Allergies Coded Allergies: lactose (LACTOSE INTOLERANT 05/08/18) penicillin G (RASH 02/14/17) Triage Nurses Notes Reviewed? yes HPI: 68-year-old man recently admitted for acute cholecystitis status post cholecystectomy with CLARIBEL drain placement and subsequent removal seen for evaluation of recurrent left upper quadrant abdominal pain. Patient was recently admitted to [facility] to the surgical service from -05/09/18 for evaluation of left upper quadrant abdominal pain where an abdominal ultrasound and CT abdomen/pelvis demonstrated gallbladder wall thickening suggestive of acute cholecystitis. Patient was started on intravenous antibiotics and admitted to the surgical service and underwent laparoscopic cholecystectomy with CLARIBEL drain placement. Patient uneventfully underwent the cholecystectomy and was discharged on postop day 1 with a 7 day total course of antibiotics. Patient reports this past Thursday developing recurrence of his left upper quadrant pain when he was out to dinner. The pain was similar in character to his previous admission. He denies consumption of any fatty fried foods since that time and has been compliant with his antibiotics. He admits to waxing/ waning of his abdominal pain with associated occasional chills alternating with fever. For persistence of his symptoms and fear of a "retained bile duct stone " he came to the [place] ED for evaluation. Presently he feels well but does admit to a few recent episodes of watery diarrhea that he attributes to antibiotic use. Review of systems He otherwise denies any headache, chest pain, palpitations, heartburn, shortness breath, cough, nausea, vomiting. (Ann TRIPATHI,Mirza) Reconcile Medications Lactobacillus Acidophilus (Probiotic) 10 BILLION CELL CAPSULE 1 CAP PO DAILY PROBIOTIC (Reported) Losartan Potassium 100 MG TABLET 1 TAB PO DAILY BP (Reported) Multivitamin/Iron/Folic Acid (Centrum Adults Tablet) 18 MG IRON-400 MCG TABLET 1 TAB PO DAILY SUPPLEMENT (Reported) Oxymetazoline HCl (Afrin) 0.05 % MIST 2 SPRAY NASB ONCE NASAL CONGESTION ( Reported) Tamsulosin HCl (Flomax) 0.4 MG CAP.ER.24H 2 CAP PO QHS (Reported) (Bro Garrett DO) Past History Medical History Any Pertinent Medical History? see below for history Neurological: NONE EENT: NONE Cardiovascular: hypertension Respiratory: NONE Gastrointestinal: lactose intolerance Hepatic: cholecystitis Renal: benign prost hyperplasia Musculoskeletal: NONE Psychiatric: NONE Endocrine: NONE Blood Disorders: NONE Cancer(s): NONE History of MRSA: No History of VRE: No History of CDIFF: No Surgical History Surgical History: non-contributory Psychosocial History What is your primary language Angolan Family History Family History, If Any: FATHER, , Age 95. Prostate cancer in father MOTHER, , Age 60+. FHx: ovarian cancer Hx Contributory? Yes (Mirza Juarez MD) Review of Systems Review of Systems Constitutional: Reports: see HPI. (Mirza Juarez MD) Physical Exam Physical Exam General Appearance: well developed/nourished, no apparent distress, alert, awake , comfortable Comments: General - well developed, well nourished elderly man in no acute distress HEENT - NCAT, PERRL, EOMI, anicteric sclera Neck- Supple, no JVD/HJR, no bruits, trachea midline, thyroid normal Cardio - S1, S2 w/o murmurs/gallops/rubs; regular rate and rhythm Resp - Clear to auscultation bilaterally GI - Soft, nontender, mildly distended, bowel sounds present, multiple laparoscopic surgical incisions well healing without any drainage Neuro - Awake and alert, CN II - XII grossly intact Extremities - No edema, pulses intact Core Measures ACS in differential dx? No CVA/TIA Diagnosis: No Sepsis Present: No Sepsis Focused Exam Completed? No (Mirza Juarez MD) Progress Differential Diagnoses I considered the following diagnoses in my evaluation of the patient: Retained common bile duct stone, cholelithiasis, choledocholithiasis, gallstone pancreatitis Plan of Care: Orders Procedure Date/time Status LIPASE 05/17 600 Active HEPATIC FUNCTION PANEL 05/17 600 Active CBC WITHOUT DIFFERENTIAL 08/13 0600 Active BASIC ELECTROLYTES PLUS BUN&CR 05/17 0600 Active AMYLASE 05/17 0600 Active Nothing by Mouth 05/16 B Active LIPASE 05/16 1200 Active HEPATIC FUNCTION PANEL 05/16 1200 Active BASIC ELECTROLYTES PLUS BUN&CR 05/16 1200 Active AMYLASE 05/16 1200 Active Weight 05/16 0644 Active Vital Signs 05/16 0644 Active Teach/Educate 05/16 0644 Active Pain Treatment and Response 05/16 0644 Active Nutritional Intake, Monitor 05/16 0644 Active Isolation 05/16 0644 Active Intake & Output 05/16 0644 Active Patient Care Conference 05/16 0644 Active Activity/Ambulation 05/16 0644 Active Lab Add-on Test 05/16 0519 Active ED Holding Orders 05/16 0513 Active Admit to inpatient 05/16 0513 Active Vital Signs 05/16 0513 Complete Code Status 05/16 0513 Active Pathway - chart 05/16 0509 Active House Staff 05/16 0509 Active PHYSICIAN CONSULT 05/16 0509 Active Patient Data 05/16 0440 Active Admit to inpatient 05/16 0433 Active Add-on Test (ER Only) 05/16 0301 Active LIPASE 05/16 0200 Complete DIRECT BILIRUBIN 05/16 0200 Complete AMYLASE 05/16 0200 Complete TROPONIN LEVEL 05/16 0137 Complete LACTIC ACID 05/16 0137 Complete COMPREHENSIVE METABOLIC PANEL 05/16 0137 Complete CBC WITHOUT DIFFERENTIAL 05/16 0137 Complete EKG 05/16 0137 Active VTE Mechanical Prophylaxis 05/16 UNK Active Vital Signs 05/16 UNK Active Intake & Output 05/16 UNK Active Current Medications Sig/Ziggy Start time Last Medication Dose Stop Time Status Admin Losartan Potassium 100 MG DAILY 05/17 0900 AC (Cozaar) Tamsulosin HCl 0.8 MG AT BEDTIME 05/16 2100 AC (Flomax) Lactobacillus 1 CAP DAILY 05/16 0900 AC Acidophilus (Probiotic) Oxycodone/ 1 TAB Q6P PRN 05/16 0515 AC Acetaminophen (Percocet) Sodium Chloride 1,000 ML .Q6H40M 05/16 0515 AC 05/16 (Normal Saline 0.9%) 05/16 1154 0627 Laboratory Tests 05/16/18 0437: Lactic Acid Cancelled 05/16/18 0200: Anion Gap 6, Estimated GFR > 60, BUN/Creatinine Ratio 23.3, Glucose 126 H, Lactic Acid 1.5, Calcium 9.1, Total Bilirubin 3.0 H, Direct Bilirubin 2.4 H, AST 733 H, ALT 836 H, Alkaline Phosphatase 226 H, Troponin I < 0.01, Total Protein 6.7, Albumin 4.1, Globulin 2.6, Albumin/Globulin Ratio 1.6, Amylase 268 H, Lipase 4277 H, CBC w Diff NO MAN DIFF REQ, RBC 5.01, MCV 88.1, MCH 28.9, MCHC 32.8 L, RDW 15.2 H, MPV 8.4, Gran % 73.1, Lymphocytes % 12.8 L, Monocytes % 11.4 H, Eosinophils % 2.5, Basophils % 0.2, Absolute Granulocytes 5.8, Absolute Lymphocytes 1.0 L, Absolute Monocytes 0.9 H, Absolute Eosinophils 0.2, Absolute Basophils 0 Initial ED EKG: none Comments: Patient recently had a cholecystectomy for similar complaints. Patient reports a 2 day history of similar abdominal pain. Vital signs are significant for an elevated systolic blood pressure. Physical examination is grossly unremarkable. Labs are significant for markedly elevated total bilirubin and transaminases with lipase 4200. CT abdomen with IV contrast demonstrates a normal-appearing pancreas and postop changes. Case was discussed with general surgery and gastroenterology whom recommended admission for gallstone pancreatitis and probable MRCP. Patient is feeling well and nontoxic appearing with normal white blood cell count and no temperature. Patient is being admitted to the general medicine floor for intravenous fluids, gastroenterology evaluation, and LFTs monitoring. (Mirza Juarez MD) Differential Diagnoses I considered the following diagnoses in my evaluation of the patient: (Bro Garrett DO) Departure Departure Disposition: STILL A PATIENT Condition: Stable Clinical Impression Primary Impression: Gallstone pancreatitis Referrals: Mario TRIPATHI,Chico Lewis (PCP/Family) Departure Forms: Customer Survey General Discharge Information (Mirza Juarez MD) Departure Comments 05/16/18 I have seen the patient and personally evaluated him and I agree with Dr. Ingram 's evaluation. 68-year-old man status post cholecystectomy. Now presents with abdominal pain which actually resolved in the Emergency Department. However he has marked elevation in his liver enzymes and bilirubin. Findings are consistent with choledocholithiasis. (Bro Garrett DO) Critical Care Note Critical Care Note Critical Care Time: non-applicable (Ann TRIPATHI,Mirza)
[2018-05-16 02:13] LABS: ABSOLUTE BASOPHIL COUNT 0 /CUMM (0.0-0.2); ABSOLUTE EOSINOPHIL COUNT 0.2 /CUMM (0.0-0.7); ABSOLUTE GRANULOCYTE CT 5.8 /CUMM (1.4-6.5); ABSOLUTE MONOCYTE COUNT 0.9 /CUMM (0.10-0.60); BASOPHIL % 0.2 % (0.0-2.0); EOSINOPHIL % 2.5 % (0-5); GRANULOCYTE % 73.1 % (42.2-75.2); MEAN CORPUSCULAR HGB 28.9 PG (27.0-31.0); MEAN CORPUSCULAR HGB CONC 32.8 G/DL (33.0-37.0); MEAN CORPUSCULAR VOLUME 88.1 FL (80.0-94.0); MEAN PLATELET VOLUME 8.4 FL (7.4-10.4); PLATELET COUNT 309 /CUMM (130-400); RBC DISTRIBUTION WIDTH 15.2 % (11.5-14.5); RED BLOOD CELL CT 5.01 /CUMM (4.70-6.10)
[2018-05-16 02:19] LABS: HEMATOCRIT 44.1 % (42-52)
--- NOTE | 2018-05-16 04:19 | CT SCAN REPORT ---
EXAMINATION: CT ABDOMEN AND PELVIS WITH CONTRAST CLINICAL INFORMATION: Recent acute cholecystitis status post cholecystectomy. Evaluate for retained stone. COMPARISON: 05/08/2018 TECHNIQUE: Multidetector volumetric imaging was performed of the abdomen and pelvis following IV administration of 95 mL of Optiray 320 intravenous contrast. Sagittal and coronal reformatted images were obtained on the technologist's workstation. DLP: 1254 mGy-cm FINDINGS: LUNG BASES: Bibasilar subsegmental atelectasis. LIVER, GALLBLADDER, AND BILIARY TREE: The liver is normal in size, shape, and attenuation. No focal hepatic lesion or biliary ductal dilatation is present. Cholecystectomy. [address] Trace fluid in the cholecystectomy bed. The common bile duct is normal in caliber with no radiopaque stones seen. PANCREAS: Unremarkable. SPLEEN: Unremarkable. ADRENAL GLANDS: Unremarkable. KIDNEYS AND URETERS: The kidneys are normal in size, shape, and attenuation. No hydronephrosis, hydroureter, or calculi seen. No perinephric stranding. Right renal cysts. BLADDER: Unremarkable. GASTROINTESTINAL TRACT: The stomach is unremarkable. The small bowel is normal in caliber. No obstruction. Fecalization of the distal ileum suggests slow transit. Normal appendix. No colonic wall thickening or inflammation. No free air or free fluid. ABDOMINAL WALL: No significant hernia is appreciated. LYMPH NODES: Normal. VASCULAR: Unremarkable. PELVIC VISCERA: The prostate is prominently enlarged. This measures 7 cm transverse. The seminal vesicles are unremarkable. OSSEOUS STRUCTURES: No acute or suspicious osseous abnormality. Multilevel degenerative changes throughout the spine. IMPRESSION: Status post cholecystectomy with trace fluid in the operative bed. Surgical clips are present. No radiopaque stone seen. No ductal dilatation. Marked prostatomegaly.
--- NOTE | 2018-05-16 04:46 | History & Physical ---
See Addendum Mike Barreto. 05/16/18 0445: General Information and HPI History of Present Illness: 68-year-old man PMH HTN BPH, recently admitted for acute cholecystitis status post cholecystectomy with CLARIBEL drain placement and subsequent removal seen for evaluation of recurrent left upper quadrant abdominal pain. Patient was recently admitted to [facility] to the surgical service from -05/09/18 for evaluation of left upper quadrant abdominal pain where an abdominal ultrasound and CT abdomen/pelvis demonstrated gallbladder wall thickening suggestive of acute cholecystitis. Patient was started on intravenous antibiotics and admitted to the surgical service and underwent laparoscopic cholecystectomy with CLARIBEL drain placement. Patient uneventfully underwent the cholecystectomy and was discharged on postop day 1 with a 7 day total course of antibiotics (Cipro/Flagyl) of which he took 13/14 total pills. Patient reports this past Thursday developing recurrence of his left upper quadrant pain when he was out to dinner. The pain was similar in character to his previous admission. He denies consumption of any fatty fried foods since that time and has been compliant with his antibiotics. He states that he had eaten seafood, and the pain developed after consuming meals. He admits to waxing/waning of his abdominal pain with associated occasional chills, denied fevers. He talked with his friend who is a surgeon at [facility] who advised him to go to the ED for suspected retained stone. He states that he did have one more episode on Thursday that was 7/10 in pain, debilitating, radiating towards back and decided that he would come to the ED. He does deny nausea/vomiting, fevers, night sweats, chest pain, urinary symptoms, LE edema. Admits to watery diarrhea although nonbloody and in the setting of antibiotic usage. Past History Travel History Traveled to [place] past 21 day No Medical History Neurological: NONE EENT: NONE Cardiovascular: hypertension Respiratory: NONE Gastrointestinal: lactose intolerance Hepatic: cholecystitis Renal: benign prost hyperplasia Musculoskeletal: NONE Psychiatric: NONE Endocrine: NONE Blood Disorders: NONE Cancer(s): NONE History of MRSA: No History of VRE: No History of CDIFF: No Surgical History Surgical History: cholecystectomy Past Family/Social History Family History Relations & Conditions if any FATHER, , Age 95. Prostate cancer in father MOTHER, , Age 60+. FHx: ovarian cancer Psychosocial History Primary Language: Estonian Smoking Status: Never Smoked ETOH Use: occasional use Illicit Drug Use: denies illicit drug use Review of Systems Review of Systems Constitutional: Reports: see HPI. Cardiovascular: Denies: chest pain, orthopena, palpitations. Respiratory: Denies: cough, hemoptysis, short of breath, sputum production. GI: Reports: abdominal pain, diarrhea (watery ). Denies: nausea, bloody stool, changes in stool, vomiting. Genitourinary: Reports: see HPI. Musculoskeletal: Reports: no symptoms. Skin: Reports: no symptoms. Exam & Diagnostic Data Last 24 Hrs of Vital Signs/I&O Vital Signs Date Time Temp Pulse Resp B/P B/P Pulse O2 O2 Flow FiO2 Mean Ox Delivery Rate 05/16 0458 80 160/82 05/16 0347 98.3 78 20 185/84 05/16 0302 78 20 185/84 98 05/16 0148 98.3 83 18 182/85 98 Room Air Intake & Output 05/16 0800 05/16 0000 05/15 1600 Intake Total Output Total Balance Patient 230 lb Weight Physical Exam General Appearance Alert, Oriented X3, Cooperative, No Acute Distress Skin No Rashes, No Breakdown, golfball sized lipoma above patients R eyebrow, unchanged per pt Skin Temp/Moisture Exam: Warm/Dry HEENT Atraumatic, Mucous Membr. moist/pink Neck Supple Cardiovascular Regular Rate, Normal S1, Normal S2 Lungs Clear to Auscultation, Normal Air Movement Abdomen Soft, No Tenderness Neurological Normal Speech, Strength at 5/5 X4 Ext, Sensation Intact Extremities No Edema Last 24 Hrs of Labs/Artie: Laboratory Tests 05/16/18 0437: Lactic Acid Cancelled 05/16/18 0200: Anion Gap 6, Estimated GFR > 60, BUN/Creatinine Ratio 23.3, Glucose 126 H, Lactic Acid 1.5, Calcium 9.1, Total Bilirubin 3.0 H, Direct Bilirubin Pending, AST 733 H, ALT 836 H, Alkaline Phosphatase 226 H, Troponin I < 0.01, Total Protein 6.7, Albumin 4.1, Globulin 2.6, Albumin/Globulin Ratio 1.6, Amylase Pending, Lipase 4277 H, CBC w Diff NO MAN DIFF REQ, RBC 5.01, MCV 88.1, MCH 28.9, MCHC 32.8 L, RDW 15.2 H, MPV 8.4, Gran % 73.1, Lymphocytes % 12.8 L, Monocytes % 11.4 H, Eosinophils % 2.5, Basophils % 0.2, Absolute Granulocytes 5.8, Absolute Lymphocytes 1.0 L, Absolute Monocytes 0.9 H, Absolute Eosinophils 0.2, Absolute Basophils 0 Assessment/Plan Assessment: 68-year-old man PMH HTN BPH, recently admitted for acute cholecystitis status post cholecystectomy with CLARIBEL drain placement and subsequent removal seen for evaluation of recurrent left upper quadrant abdominal pain. Has no white count or fevers but does complain of some chills at home. Has elevations in bilirubin, LFTs, Lipase, concerning for a retained stone, although during patient interview apparently had immediate cessation of pain which likely is the stone passing. CT did not show any evidence of stone. Differentials include Choledocholithiasis, Pancreatitis, doubt Cholangitis ( without fever and WBC), bile leak (doubt) Problem List: #Transaminitis #Elevated Lipase #Increased bilirubin #Suspected choledocholithiasis #Choledocholithiasis -NPO -GI consult in AM -Will monitor transaminases, bili, white count -Pain control as needed; nausea control as needed -MRCP/ERCP per GI #Elevated Lipase -NPO at this point -Will trend DVT PPx - ALPS no heparin if OR IV Access NPO Full Code Dispo likely to home As Ranked By This Provider Problem List: 1. Transaminitis 2. Abdominal pain Core Measures/Misc (06/21) Acute Coronary Syndrome ACS Diagnosis: No Congestive Heart Failure Congestive Heart Failure Diagnosis No Cerebrovascular Accident CVA/TIA Diagnosis: No VTE (View Protocol) VTE Risk Factors Age>40 No Mechanical VTE Prophylaxis d/t N/A MechProphylax Ordered No VTE Pharm Prophylaxis d/t Surgical Contraindication Sepsis (View protocol) Sepsis Present: No If YES complete Sepsis Event Note If YES complete Sepsis Event Note Katie Sosa 05/16/18 0458: Core Measures/Misc (06/21) Sepsis (View protocol) If YES complete Sepsis Event Note If YES complete Sepsis Event Note Resident Review Statement Resident Statement: examined this patient, discussed with photo intern, agreed with photo intern, discussed with family, reviewed EMR data (avail), discussed with nursing , discussed with case mgmt, reviewed images, amended to note Other Findings: Mr. Duron is a 68 yo M w/ PMH of HTN, BPH, Lactose intolerance, acute cholecystitis s/p laparoscopic cholecystectomy w/ CLARIBEL drain placement and subsequent removal 05/08-05/09/2018, discharged w/ post-op ABX, now returned to ER w / recurrence of LUQ pain starting Thursday night, similar to previous admission, denied consumption of any fatty fried foods. Otherwise, also endorseed a few episodes of watery non-bloody diarrhea attributed to ABx use. During our clinical interaction, patient denied recent travel/sick contacts, fever/lightheadedness/diaphoresis/night sweat/weight change/cough/SOB/Chest Pain /Palpitation/CVA tenderness/bowel movement or urinary abnormality, or other skin /musculoskeletal/neurological/mood disorders. -Smoking: -Alcohol: -Drugs: -Outpt physicians: On admission, Vitals: stable afebrile, BP 182/84 Physical exam as above. Pertinent findings include -Gen.: AO x3, cooperative, no distress, -HEENT: NCAT, PERRL, EOMI, anicteric sclera, moist mucous membranes -Neck: Supple, no JVD, trachea midline, mild accessory respiratory muscle use -Cardio: Normal S1/S2 without significant murmurs/gallops/rubs -Pulmonary: grossly normal air movement w/ clear auscultation -Abdomen: Soft, nontender, nondistended, bowel sounds intact -Neuro: Awake and alert, cranial nerves II through XII grossly intact -Extremity: Normal pulses/capillary refill, no cyanosis/clubbing/edema -CBC: WNL -CMP: WNL except Transaminitis 733/836, elevated TB 3.0, ALKP 226, Lipase 4277, trop -ve x 1 -AB CT: Status post cholecystectomy with trace fluid in the operative bed. Surgical clips are present. No radiopaque stone seen. No ductal dilatation. Marked prostatomegaly. -EKG: NSR w/o significant ST-T abnormalities, unchanged from previous. -Last Echo: None in our system -Interventions in ER: NS Bolus x 1L, Losartan 100mg PO x 1 Problem list/Assessment/Hospital Course: #Choledocolithiasis s/p cholecystectomy #Transaminitis w/ elevated ALKP, likely reactive to above #HTN #PMH of HTN, BPH, Lactose intolerance - Admit to General medicine - Vitals per protocol, monitor I&O per protocol. - Keep NPO for now. - Continuous IVF 150cc/hr - Pending GI consult in the AM for ERCP/MRCP. MRCP supposingly to be done on Thursday. - Continue all home meds. - Pain per pathway. Avoid tylenol due to transaminitis. DVT prophylaxis ALPS only for now if OR/ERCP NPO IV Access: Peripheral IV Full Code Dispo: [facility] misael Maya MD,Brandon 05/16/18 0558: General Information and HPI MD Statement: I have seen and personally examined OLESYA DURON and documented this H&P. The patient is a 68 year old M who presented with a patient stated chief complaint of [abdominal pain]. Source of Information: patient Exam Limitations: no limitations Allergies/Medications Allergies: Coded Allergies: lactose (LACTOSE INTOLERANT 05/08/18) penicillin G (RASH 02/14/17) Home Med list Lactobacillus Acidophilus (Probiotic) 10 BILLION CELL CAPSULE 1 CAP PO DAILY PROBIOTIC (Reported) Losartan Potassium 100 MG TABLET 1 TAB PO DAILY BP (Reported) Multivitamin/Iron/Folic Acid (Centrum Adults Tablet) 18 MG IRON-400 MCG TABLET 1 TAB PO DAILY SUPPLEMENT (Reported) Oxymetazoline HCl (Afrin) 0.05 % MIST 2 SPRAY NASB ONCE NASAL CONGESTION ( Reported) Tamsulosin HCl (Flomax) 0.4 MG CAP.ER.24H 2 CAP PO QHS (Reported) Past History Medical History Cardiovascular: hypertension Gastrointestinal: lactose intolerance Hepatic: cholecystitis Renal: benign prost hyperplasia Surgical History Surgical History: cholecystectomy Past Family/Social History Psychosocial History Smoking Status: Never Smoked ETOH Use: occasional use Illicit Drug Use: denies illicit drug use Review of Systems Review of Systems Constitutional: Reports: see HPI. Exam & Diagnostic Data Last 24 Hrs of Vital Signs/I&O Vital Signs Date Time Temp Pulse Resp B/P B/P Pulse O2 O2 Flow FiO2 Mean Ox Delivery Rate 05/16 0458 80 160/82 05/16 0347 98.3 78 20 185/84 05/16 0302 78 20 185/84 98 05/16 0148 98.3 83 18 182/85 98 Room Air Intake & Output 05/16 0800 05/16 0000 05/15 1600 Intake Total Output Total Balance Patient 230 lb Weight Physical Exam General Appearance Alert, Oriented X3, Cooperative, No Acute Distress Skin No Rashes, No Breakdown, No Significant Lesion Skin Temp/Moisture Exam: Warm/Dry Sepsis Skin Exam (color): Normal for Ethnicity HEENT Atraumatic, PERRLA, EOMI, Mucous Membr. moist/pink Neck Supple, No JVD Lymphatic Axillary nl, Cervical nl Cardiovascular Regular Rate, Normal S1, Normal S2 Lungs Clear to Auscultation, Normal Air Movement Abdomen Normal Bowel Sounds, Soft, No Tenderness Neurological Normal Gait, Normal Speech Sepsis Peripheral Pulse Location: Dorsalis Pedis Sepsis Peripheral Pulse Exam: Normal Sepsis Cap Refill Exam: <2 Sec Last 24 Hrs of Labs/Artie: Laboratory Tests 05/16/18 0437: Lactic Acid Cancelled 05/16/18 0200: Anion Gap 6, Estimated GFR > 60, BUN/Creatinine Ratio 23.3, Glucose 126 H, Lactic Acid 1.5, Calcium 9.1, Total Bilirubin 3.0 H, Direct Bilirubin Pending, AST 733 H, ALT 836 H, Alkaline Phosphatase 226 H, Troponin I < 0.01, Total Protein 6.7, Albumin 4.1, Globulin 2.6, Albumin/Globulin Ratio 1.6, Amylase Pending, Lipase 4277 H, CBC w Diff NO MAN DIFF REQ, RBC 5.01, MCV 88.1, MCH 28.9, MCHC 32.8 L, RDW 15.2 H, MPV 8.4, Gran % 73.1, Lymphocytes % 12.8 L, Monocytes % 11.4 H, Eosinophils % 2.5, Basophils % 0.2, Absolute Granulocytes 5.8, Absolute Lymphocytes 1.0 L, Absolute Monocytes 0.9 H, Absolute Eosinophils 0.2, Absolute Basophils 0 Core Measures/Misc (06/21) Sepsis (View protocol) If YES complete Sepsis Event Note If YES complete Sepsis Event Note Attending MD Review Statement Attending Statement Attending MD Statement: examined this patient, discuss w/resident/PA/LINE DANCER, agreed w/resident/PA/LINE DANCER, discussed with family, reviewed EMR data (avail), amended to note Attending Assessment/Plan: This patient is a 68-year-old male with a significant past medical history for HTN, BPH, acute cholecystitis s/p laparoscopic cholecystectomy w/ CLARIBEL drain placement and subsequent removal 05/08-02/2018, discharged w/ post-op ABX, now returned to ER w/ recurrence of LUQ pain starting 1 day prior to admission, pain similar to previous admission. While in the emergency department the patient was found to have severe pain which became intense and then completely resolved, hypertension 180s over 80s, total bili 3, AST 733, ALT 836, alkaline phosphatase 226, lipase 4277, EKG - NSR w/o significant ST-T abnormalities, unchanged from previous and CT ABD/PELV - Status post cholecystectomy with trace fluid in the operative bed. Surgical clips are present. No radiopaque stone seen. No ductal dilatation. The patient will be admitted to general medicine for choledocholithiasis and gallstone pancreatitis. Keep NPO for now, gentle hydration, GI consult. Will monitor today with possible MRCP on Thursday and may be follow-up ERCP on Thursday and on course. Full code.
[2018-05-16 06:57] VITALS: BP 152/88
--- NOTE | 2018-05-16 09:00 | PN- Housestaff ---
See Addendum Subjective Follow-up For: Choledocolithiasis Subjective: Patient was seen and examined at bedside. He says he feels much better but wants pain meds for his headache. He reports that his pain "has not come back" since last night. Denies fever, chills, nausea, vomiting. Review of Systems Constitutional: Reports: see HPI. Objective Last 24 Hrs of Vital Signs/I&O Vital Signs Date Time Temp Pulse Resp B/P B/P Pulse O2 O2 Flow FiO2 Mean Ox Delivery Rate 05/16 1452 98.6 77 20 162/90 96 Room Air 05/16 0657 98.9 76 20 152/88 95 Room Air 05/16 0458 80 160/82 05/16 0347 98.3 78 20 185/84 05/16 0302 78 20 185/84 98 05/16 0148 98.3 83 18 182/85 98 Room Air Intake & Output 05/16 1600 05/16 0800 05/16 0000 Intake Total 600 10 Output Total Balance 600 10 Intake, IV 600 10 Patient 237 lb Weight Weight Bed scale Measurement Method Physical Exam General Appearance: Alert, Oriented X3, Cooperative, No Acute Distress Skin: No Rashes Neck: Supple Cardiovascular: Regular Rate, Normal S1, Normal S2 Lungs: Clear to Auscultation, Normal Air Movement Abdomen: Normal Bowel Sounds, Soft, No Tenderness Extremities: No Edema Assessment/Plan Assessment: 68-year-old man PMH HTN BPH, recently admitted for acute cholecystitis status post cholecystectomy with CLARIBEL drain placement and subsequent removal seen for evaluation of recurrent left upper quadrant abdominal pain. Has no white count or fevers but does complain of some chills at home. Has elevations in bilirubin, LFTs, Lipase, concerning for a retained stone, although during patient interview apparently had immediate cessation of pain which likely is the stone passing. CT did not show any evidence of stone. Differentials include Choledocholithiasis, Pancreatitis, doubt Cholangitis ( without fever and WBC), bile leak (doubt) Problem List: 1.Transaminitis 2.Elevated Lipase 3.Increased bilirubin 4.Suspected choledocholithiasis 1.Choledocholithiasis -NPO for RUQ sonogram. Can take sips of water if not scheduled for today. -GI consult in aprreciated. Will follow up recs. * Will monitor transaminases, bili, white count * Will order CRP in the morning * Will watch out for hemoconcentration by checking for rise in Hb and BUN * MRCP at 9 PM -Pain control as needed; nausea control as needed -ERCP on Thursday 2.Elevated Lipase -NPO at this point -Will trend DVT PPx - ALPS no heparin if OR IV Access NPO Full Code Dispo likely to home Problem List: 1. Transaminitis 2. Abdominal pain 3. Fatty liver 4. Hepatic cyst Pain Ratin Pain Location: na Pain Goal: Remain pain free Pain Plan: na Tomorrow's Labs & Rationales: cbc, bep and crp
--- NOTE | 2018-05-16 11:37 | Cons- Gastroenterology ---
See Addendum General Information and HPI Consulting Request Date of Consult: 05/16/18 Requested By: Brandon Maya MD Reason for Consult: I was called approximate 4:30 AM by the [facility] to assess probable gallstone pancreatitis, post-lap CCKY on 05/08/18. Source of Information: patient, old records Exam Limitations: no limitations History of Present Illness: 68 y/o male, HTN, non-DM, non-HLD, mildly obese, BPH (benign prostate bx ), seasonal allergies, lactose intolerance, PCN-allergy, recently admitted to Dr. Otero's surgical service at [facility] from 05/08/18 to 05/09/18, for LUQ pain, at which time, preop RUQ sono/CT AP showed gallbladder wall thickening, suggestive of cholecystitis. *The patient had normal LFTs & normal lipase preop, on 05/08/18, albeit with WBC 15K. The patient was put on IV antibiotics and underwent 05/08/18: lap CCKY with CLARIBEL drain placement (without IOC). The patient was found to have a thick-walled/ necrotic gallbladder with multiple small stones, and a necrotic cystic duct. Surgical pathology revealed severe acute ulcerative necrotizing cholecystitis & cholelithiasis. He was discharged on POD#1 1 on a 7 day course of Cipro/Flagyl, which he had almost completed. His CLARIBEL drain had been removed in the surgical office, a few days postop. The patient noted recurrent LUQ pain Stephen evening, 05/14/18, after he ate scallops at home, similar to his initial symptoms 1 week prior. He denied eating any fatty foods since his CCKY. He denied any fevers, but noted occasional chills since his CCKY (which were present preop, as well). He had no sx of UTI or URI. His LUQ pain radiated to his left mid-upper back. There was no positional component. The pain had since resolved. He denied any CP or SOB. He denied any nausea, vomiting, reflux, odynophagia, dysphagia, early satiety, hematemesis, melena, confusion, jaundice, dark urine, light stools, or pruritus. He denied any NSAIDS, cigarettes, EtOH, illicit drugs, hx hepatitis, or blood transfusions. He noted minimal diarrhea (semi-formed stools), which he attributed to his antibiotics. He denied any constipation, obstipation, tenesmus, change in stool caliber, or rectal bleeding. He claimed he had a GI workup done in [place], [place] > 30 years ago, & was told of "lactose intolerance". His baseline & only colonoscopy then was "normal". He has been admittedly delinquent with a follow-up screening colonoscopy since. He denied any weight loss (aside from perhaps a few pounds in the perioperative period), or change in appetite. In fact, he was hungry. He arrived at the [facility] 05/15/18 at 11:44 p.m., for the LUQ pain (which had already resolved), at which point, he was HTN, with BP 182/85, P 83, R 18, T 98.3, O2 sat RA 98%. He did not spike any fevers there. He was given IVF & Cozaar for his BP. He was found to have elevated LFTs and elevated lipase in the ER (*see below), with normal WBC & normal GFR. The ER had contacted the surgical service (Dr. Rocha covering for Dr. Otero), and myself. They were made aware of the current logistical limitations at [facility], regarding availability of MRCP & ERCP, & the patient was admitted with a presumed diagnosis of gallstone pancreatitis. There was no FHx GI Ca, GBD, PUD, pancreatitis, or inherited liver disease. 05/08/18: EKG- NSR @ 74, LAD, IRBBB, LVH, PRWP. 05/08/18: CT ABDOMEN AND PELVIS WITHOUT IV or PO CONTRAST (per [facility])- - No evidence of urolithiasis or urinary tract obstruction. B/L renal cysts. - Colonic diverticulosis without diverticulitis. Normal AP. -Possible noncalcified stones within the lumen of the gallbladder. Gallbladder wall appears mildly thickened and there is subtle haziness of pericholecystic fat. These findings require clinical correlation. The provided history is that of left-sided pain. However, if the patient has right-sided pain (particularly a Alan's sign), then acute cholecystitis should be considered. Recommend ultrasound evaluation of the gallbladder. Nodilated ducts. Liver cysts at hepatic dome & left lobe liver, up to 1.1 cm. - Markedly enlarged prostate gland. - Mild ASHD of aorta without AAA. - DJD L-spine with mild dextrocurvature. 05/08/18: US-LIMITED RUQ ABDOMEN- Cholelithiasis with gallbladder wall thickening and fluid within the gallbladder wall consistent with acute cholecystitis however patient does not have tenderness to palpation overlying the gallbladder however patient is medicated. Normal CBD 2 mm. No pericholecystic fluid. Fatty infiltration of the liver. No focal hepatic mass. Right renal cysts. 05/16/18: CT ABD & PELVIS W IV CONTRAST- Status post cholecystectomy with trace fluid in the operative bed. Surgical clips are present. No radiopaque stone seen. No ductal dilatation. Normal liver. Marked prostatomegaly. Right renal cysts. 05/16/18: EKG- NSR @ 76, LAD, IRBBB, LVH, PRWP. 05/16/18: 0200- WBC 8.0 (no left shift), H/H 14.5/44.1, MCV 88.1, RDW 15.2, PLT 309, glucose 126, BUN/Cr 14/0.6, GFR > 60, Na 137, K 4.7, HCO3 31, AG 6, lactate 1.5, amylase 268, lipase 4277, Ca 9.1, albumin 4.1, globulin 2.6, TBil 3.0, DBil 2.4, alk phos 226, AST 733, ALT 836, troponin < 0.01 (no U/A or coags sent). Allergies/Medications Allergies: Coded Allergies: lactose (LACTOSE INTOLERANT 05/08/18) penicillin G (RASH 02/14/17) Home Med List: Lactobacillus Acidophilus (Probiotic) 10 BILLION CELL CAPSULE 1 CAP PO DAILY PROBIOTIC (Reported) Losartan Potassium 100 MG TABLET 1 TAB PO DAILY BP (Reported) Multivitamin/Iron/Folic Acid (Centrum Adults Tablet) 18 MG IRON-400 MCG TABLET 1 TAB PO DAILY SUPPLEMENT (Reported) Oxymetazoline HCl (Afrin) 0.05 % MIST 2 SPRAY NASB ONCE NASAL CONGESTION ( Reported) Tamsulosin HCl (Flomax) 0.4 MG CAP.ER.24H 2 CAP PO QHS (Reported) Current Medications: Current Medications Sig/Ziggy Start time Last Medication Dose Route Stop Time Status Admin Ibuprofen 400 MG ONCE ONE 05/16 1115 DC PO 05/16 1116 Lactobacillus 1 CAP DAILY 05/16 0900 AC 05/16 Acidophilus PO 0945 Losartan Potassium 100 MG DAILY 05/17 0900 AC PO Losartan Potassium 100 MG ONCE ONE 05/16 0345 DC 05/16 PO 05/16 0346 0347 Oxycodone/ 1 TAB Q6P PRN 05/16 0515 AC Acetaminophen PO Sodium Chloride 1,000 ML .[id number] 05/16 0515 DC 05/16 IV 05/16 1154 0627 Sodium Chloride 1,000 ML BOLUS ONE 05/16 0145 DC IV 05/16 0244 Tamsulosin HCl 0.8 MG AT BEDTIME 05/16 2100 AC PO Past History Travel History Traveled to [place] past 21 day No Medical History Blood Transfusion Hx: No Neurological: NONE EENT: NONE Cardiovascular: hypertension Respiratory: NONE Gastrointestinal: lactose intolerance Hepatic: cholecystitis (01/06/18: lap CCKY) Renal: NONE (07/27/17: benign bx), benign prost hyperplasia Musculoskeletal: NONE Psychiatric: NONE Endocrine: obesity Blood Disorders: NONE Cancer(s): NONE 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 , Age 95; Cause: Lung cancer. Prostate cancer in father MOTHER, , Age 73; Cause: Ovarian ca. FHx: ovarian cancer Psychosocial History Where Do You Live? Home Who Do You Live With? spouse Services at Home: None Primary Language: Canadian Smoking Status: Never Smoked ETOH Use: denies use (rare), occasional use Illicit Drug Use: denies illicit drug use Living Will? no Power of Weather Reporter/HCP? no Other Social History: to [facility]. 2 sons- [employer]. No cigarettes. Rare wine. No illicit drugs. 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 Originally from [place], [place]. Functional Ability ADLs Independent: dressing, eating, toileting, bathing. Ambulation: independent IADLs Independent: shopping, housework, finances, food prep, telephone, transportation , medication admin. Employment History Employment: Employed Profession/Employer: [employer] Review of Systems Review of Systems: Full 14 point ROS otherwise noncontributory, & as above. Review of Systems Constitutional: Reports: chills (resolved). Denies: diaphoresis, fever, malaise, weakness, unexplained weight loss. EENTM: Denies: blurred vision, double vision, visual changes, eye pain, eye drainage, eye tearing, icterus, ear discharge, ear pain, ear redness, hearing changes, nasal congestion, epistaxis, nasal pain, throat pain, throat swelling, mouth pain, tooth pain. Cardiovascular: Denies: chest pain, edema, orthopena, palpitations, peripheral edema, syncope. Respiratory: Denies: cough, hemoptysis, orthopnea, short of breath, sputum production, stridor, wheezing. GI: Reports: abdominal pain (LUQ-> back; resolved), diarrhea (semiformed stools, post abx). Denies: bloating, constipation, distention, bowel incontinence, melena, nausea, bloody stool, changes in stool, vomiting, steatorrhea. Genitourinary: Reports: frequency (BPH), hesitation (BPH), nocturia (BPH). Denies: discharge, dysuria, hematuria, pain, urgency. Musculoskeletal: Denies: back pain, gout, joint pain, joint swelling, muscle pain, muscle stiffness, neck pain. Skin: Denies: cysts, change in skin color, change in hair/nails, dryness, erythema, jaundice, lesions, lymphangitis, lumps, moles, rash. Neurological/Psychological: Denies: anxiety, ataxia, cognitive dysfunction, confusion, depressed, dementia, emotional problems, headache, numbness, paresthesia, pre-existing deficit, petit mal seizures, tingling, tremors, tonic-clonic seizures, unable to move lower ext , unable to move upper ext, weakness. Hematologic/Endocrine: Denies: bruising, bleeding, polyuria, polydipsia. Immunologic/Allergic: Denies: splenectomy, HIV/AIDS, lymphadenopathy. All Other Systems: Reviewed and Negative Exam & Diagnostic Data Vital Signs and I&O Vital Signs Date Time Temp Pulse Resp B/P B/P Pulse O2 O2 Flow FiO2 Mean Ox Delivery Rate 05/16 0657 98.9 76 20 152/88 95 Room Air 05/16 0458 80 160/82 05/16 0347 98.3 78 20 185/84 05/16 0302 78 20 185/84 98 05/16 0148 98.3 83 18 182/85 98 Room Air Intake & Output 05/16 1600 05/16 0400 05/15 0400 05/14 0400 Intake Total 10 Output Total Balance 10 Intake, IV 10 Patient 237 lb 230 lb Weight Weight Bed scale Measurement Method Physical Exam: Well-developed, well-nourished patient, pleasant, slightly obese male, in no apparent distress. Sclera mildly icteric. Conjunctiva pink. Oropharynx clear. No oral thrush. There is no adenopathy, thyromegaly, or JVD. No peripheral stigmata of inflammatory bowel disease or chronic liver disease on exam. No spiders on the anterior chest wall. No gynecomastia. No CVA tenderness. No spine tenderness. Mild lumbar dextroscolisosis. Lungs: clear to A&P, with slight decreased BS at the bases B/L. No wheezing, rales, or rhonchi. Heart exam: regular rate rhythm, S1 and S2, without any murmur. Abdominal exam: normal bowel sounds, soft slightly obese belly, currently nontender, without guarding or rebound. Well healed port sites (post 05/08/18: lap CCKY). No mass. No organomegaly. No fluid shift. No pulsatile mass. No epigastric bruit. Digital rectal exam: deferred by patient ("done at urology"). Extremities without C, C, or E. No palpable cords. No rash. Minimal DJD. No palmar erythema. No Dupuytren 's contractures. Distal pulses 2+ bilaterally. DTRs 2+ bilaterally. Right handed. CN II-XII intact. Motor 5/5 B/L. Alert and oriented x 3. No tremor. No asterixis. Results Pertinent Lab Results: Laboratory Tests 05/16 05/16 05/16 1245 0437 0200 Chemistry Sodium (137 - 145 mmol/L) Pending 137 Potassium (3.5 - 5.1 mmol/L) Pending 4.7 Chloride (98 - 107 mmol/L) Pending 100 Carbon Dioxide (22 - 30 mmol/L) Pending 31 H Anion Gap (5 - 16) Pending 6 BUN (9 - 20 mg/dL) Pending 14 Creatinine (0.7 - 1.2 mg/dL) Pending 0.6 L Estimated GFR (>60 ml/min) > 60 BUN/Creatinine Ratio (7 - 25 %) Pending 23.3 Glucose (65 - 99 mg/dL) 126 H Lactic Acid (0.7 - 2.1 mmol/L) Cancelled 1.5 Calcium (8.4 - 10.2 mg/dL) 9.1 Total Bilirubin (0.2 - 1.3 mg/dL) Pending 3.0 H Direct Bilirubin (< 0.4 mg/dL) Pending 2.4 H AST (17 - 59 U/L) Pending 733 H ALT (21 - 72 U/L) Pending 836 H Alkaline Phosphatase (< 127 U/L) Pending 226 H Troponin I (<0.11 ng/ml) < 0.01 Total Protein (6.3 - 8.2 g/dL) Pending 6.7 Albumin (3.5 - 5.0 g/dL) Pending 4.1 Globulin (1.9 - 4.2 gm/dL) 2.6 Albumin/Globulin Ratio (1.1 - 2.2 %) 1.6 Amylase (30 - 110 U/L) Pending 268 H Lipase (23 - 300 U/L) Pending 4277 H Hematology CBC w Diff NO MAN DIFF REQ WBC (4.8 - 10.8 /CUMM) 8.0 RBC (4.70 - 6.10 /CUMM) 5.01 Hgb (14.0 - 18.0 G/DL) 14.5 Hct (42 - 52 %) 44.1 MCV (80.0 - 94.0 FL) 88.1 MCH (27.0 - 31.0 PG) 28.9 MCHC (33.0 - 37.0 G/DL) 32.8 L RDW (11.5 - 14.5 %) 15.2 H Plt Count (130 - 400 /CUMM) 309 MPV (7.4 - 10.4 FL) 8.4 Gran % (42.2 - 75.2 %) 73.1 Lymphocytes % (20.5 - 51.1 %) 12.8 L Monocytes % (1.7 - 9.3 %) 11.4 H Eosinophils % (0 - 5 %) 2.5 Basophils % (0.0 - 2.0 %) 0.2 Absolute Granulocytes (1.4 - 6.5 /CUMM) 5.8 Absolute Lymphocytes (1.2 - 3.4 /CUMM) 1.0 L Absolute Monocytes (0.10 - 0.60 /CUMM) 0.9 H Absolute Eosinophils (0.0 - 0.7 /CUMM) 0.2 Absolute Basophils (0.0 - 0.2 /CUMM) 0 Imaging/Other Studies: 05/08/18: EKG- NSR @ 74, LAD, IRBBB, LVH, PRWP. 05/08/18: CT ABDOMEN AND PELVIS WITHOUT IV or PO CONTRAST (per [facility])- - No evidence of urolithiasis or urinary tract obstruction. B/L renal cysts. - Colonic diverticulosis without diverticulitis. Normal AP. -Possible noncalcified stones within the lumen of the gallbladder. Gallbladder wall appears mildly thickened and there is subtle haziness of pericholecystic fat. These findings require clinical correlation. The provided history is that of left-sided pain. However, if the patient has right-sided pain (particularly a Alan's sign), then acute cholecystitis should be considered. Recommend ultrasound evaluation of the gallbladder. Nodilated ducts. Liver cysts at hepatic dome & left lobe liver, up to 1.1 cm. - Markedly enlarged prostate gland. - Mild ASHD of aorta without AAA. - DJD L-spine with mild dextrocurvature. 05/08/18: US-LIMITED RUQ ABDOMEN- Cholelithiasis with gallbladder wall thickening and fluid within the gallbladder wall consistent with acute cholecystitis however patient does not have tenderness to palpation overlying the gallbladder however patient is medicated. Normal CBD 2 mm. No pericholecystic fluid. Fatty infiltration of the liver. No focal hepatic mass. Right renal cysts. 05/08/18: LAP CCKY- Severe acute ulcerative necrotizing cholecystitis & cholelithiasis. 05/16/18: CT ABD & PELVIS W IV CONTRAST- Status post cholecystectomy with trace fluid in the operative bed. Surgical clips are present. No radiopaque stone seen. No ductal dilatation. Normal liver. Marked prostatomegaly. Right renal cysts. 05/16/18: EKG- NSR @ 76, LAD, IRBBB, LVH, PRWP. Assessment/Plan Assessment/Recommendations: 68 y/o male, HTN, non-DM, non-HLD, mildly obese, BPH (benign prostate bx ), seasonal allergies, lactose intolerance, PCN-allergy, recently admitted to Dr. Otero's surgical service at [facility] from 05/08/18 to 05/09/18, for LUQ pain, at which time, preop RUQ sono/CT AP showed gallbladder wall thickening, suggestive of cholecystitis. *The patient had normal LFTs & normal lipase preop, on 05/08/18, albeit with WBC 15K. The patient was put on IV antibiotics and underwent 05/08/18: lap CCKY with CLARIBEL drain placement (without IOC). The patient was found to have a thick-walled/ necrotic gallbladder with multiple small stones, and a necrotic cystic duct. Surgical pathology revealed severe acute ulcerative necrotizing cholecystitis & cholelithiasis. He was discharged on POD#1 1 on a 7 day course of Cipro/Flagyl, which he had almost completed. His CLARIBEL drain had been removed in the surgical office, a few days postop. The patient noted recurrent LUQ pain Stephen evening, 05/14/18, after he ate scallops at home, similar to his initial symptoms 1 week prior. He denied eating any fatty foods since his CCKY. He denied any fevers, but noted occasional chills since his CCKY (which were present preop, as well). He had no sx of UTI or URI. His LUQ pain radiated to his left mid-upper back. There was no positional component. The pain had since resolved. He denied any CP or SOB. He denied any nausea, vomiting, reflux, odynophagia, dysphagia, early satiety, hematemesis, melena, confusion, jaundice, dark urine, light stools, or pruritus. He denied any NSAIDS, cigarettes, EtOH, illicit drugs, hx hepatitis, or blood transfusions. He noted minimal diarrhea (semi-formed stools), which he attributed to his antibiotics. He denied any constipation, obstipation, tenesmus, change in stool caliber, or rectal bleeding. He claimed he had a GI workup done in [place], [place] > 30 years ago, & was told of "lactose intolerance". His baseline & only colonoscopy then was "normal". He has been admittedly delinquent with a follow-up screening colonoscopy since. He denied any weight loss (aside from perhaps a few pounds in the perioperative period), or change in appetite. In fact, he was hungry. He arrived at the [facility] 05/15/18 at 11:44 p.m., for the LUQ pain (which had already resolved), at which point, he was HTN, with BP 182/85, P 83, R 18, T 98.3, O2 sat RA 98%. He did not spike any fevers there. He was given IVF & Cozaar for his BP. He was found to have elevated LFTs and elevated lipase in the ER (*see below), with normal WBC & normal GFR. The ER had contacted the surgical service (Dr. Rocha covering for Dr. Otero), and myself. They were made aware of the current logistical limitations at [facility], regarding availability of MRCP & ERCP, & the patient was admitted with a presumed diagnosis of gallstone pancreatitis. There was no FHx GI Ca, GBD, PUD, pancreatitis, or inherited liver disease. 05/08/18: EKG- NSR @ 74, LAD, IRBBB, LVH, PRWP. 05/08/18: CT ABDOMEN AND PELVIS WITHOUT IV or PO CONTRAST (per [facility])- - No evidence of urolithiasis or urinary tract obstruction. B/L renal cysts. - Colonic diverticulosis without diverticulitis. Normal AP. -Possible noncalcified stones within the lumen of the gallbladder. Gallbladder wall appears mildly thickened and there is subtle haziness of pericholecystic fat. These findings require clinical correlation. The provided history is that of left-sided pain. However, if the patient has right-sided pain (particularly a Alan's sign), then acute cholecystitis should be considered. Recommend ultrasound evaluation of the gallbladder. Nodilated ducts. Liver cysts at hepatic dome & left lobe liver, up to 1.1 cm. - Markedly enlarged prostate gland. - Mild ASHD of aorta without AAA. - DJD L-spine with mild dextrocurvature. 05/08/18: US-LIMITED RUQ ABDOMEN- Cholelithiasis with gallbladder wall thickening and fluid within the gallbladder wall consistent with acute cholecystitis however patient does not have tenderness to palpation overlying the gallbladder however patient is medicated. Normal CBD 2 mm. No pericholecystic fluid. Fatty infiltration of the liver. No focal hepatic mass. Right renal cysts. 05/16/18: CT ABD & PELVIS W IV CONTRAST- Status post cholecystectomy with trace fluid in the operative bed. Surgical clips are present. No radiopaque stone seen. No ductal dilatation. Normal liver. Marked prostatomegaly. Right renal cysts. 05/16/18: EKG- NSR @ 76, LAD, IRBBB, LVH, PRWP. 05/16/18: 0200- WBC 8.0 (no left shift), H/H 14.5/44.1, MCV 88.1, RDW 15.2, PLT 309, glucose 126, BUN/Cr 14/0.6, GFR > 60, Na 137, K 4.7, HCO3 31, AG 6, lactate 1.5, amylase 268, lipase 4277, Ca 9.1, albumin 4.1, globulin 2.6, TBil 3.0, DBil 2.4, alk phos 226, AST 733, ALT 836, troponin < 0.01 (no U/A or coags sent). *As of 05/16/18, although the patient appeared relatively stable, he clinically and historically had gallstone pancreatitis, post 05/08/18: lap CCKY. His elevated LFTs were noted. He had nothing clinically, nor by labs, to suggest cholangitis. *Having stated that, he had been on Cipro & Flagyl for the past week, & so it is possible that a cholangitis could have been "masked". He did have some outpt chills, which subsided. His LUQ painhad resolved. He reportedly is PCN allergic. When I was contacted at approximately 4:30 a.m. on 05/16/18, the ER had been made aware of the current logistical limitations, namely that MRCP was not available at [facility] on 05/16/18 or on 05/18/18, & that ERCP was not available here until 05/18/18. Nevertheless, the patient was admitted to [facility], with the understanding that if he decompensated during this interval, that he would potentially have to transferred to another institution, for the necessary tests. There is a possibility that he could have already passed some stone or sludge from the CBD. *SUGGEST- NPO for RUQ sono, if available on 05/16/18. Otherwise, can try sips of clears, then NPO after 11:59 p.m. on 05/16/18, for MRCP 05/17/18. Lactated Ringers @ 200 cc/hr for now. Strict I's & O's. Serial LFTs, CBC, lytes, BUN/Cr, GFR. *Watch for hemoconcentration (i.e.- rising Hgb or BUN), which would be a poor prognostic sign. Check CRP in a.m. for prognostic purposes. *Empiric BC x 2. * Check status of PCN allergy (see if he can tolerate cephalosporins)- as he has been partially txd for the past week, would empirically rx IV Ceftriaxone/Flagyl of IV Cipro/Flagyl to cover the RUQ, until his clinical status is better clarified. *Would check PT with INR, in case papillotomy is needed & give 1 dose of empiric Vitamin K 10 mg sc. Again, although MRCP may be a superfluous test if his LFTs rise, based on current logistics, would aim for MRCP on Thursday, , with plans for tentative ERCP on 05/18/18, depending on clinical course. * Please contact [facility] if the patient develops any signs or symptoms of cholangitis, namely hypotension, tachycardia, temperature spikes, confusion, etc., which again, could require potentially transferring the patient to another institution. The incidental fatty liver (noted on only some of the imaging studies) & incidental hepatic cysts were discussed with the patient. Once the patient is discharged, I advised risk factor modification for the fatty liver, including weight reduction & strict control of BP, lipids, glucose, etc. There was no hx of significant EtOH. He may benefit from outpt Vitamin E 800 IU po daily, fom it's antioxidant effect. I would also check a fasting lipid profile & HgA1C regarding his fatty liver. (Again, his pancreatitis appears biliary in nature; doubt significant hyperTG). The patient was also made aware that he was way overdue for a screening colonoscopy (baseline & only colonoscopy in [place], [place] > 30 years ago- "normal"), & I gave him my office number for future reference, after his immediate issues are taken care of. He should ultimately be on fiber supplements for his incidental diverticulosis coli as an outpt. The above was discussed in detail with the patient, the patient's , Olesya, at the bedside (per patient request), & with the medical housestaff. Further GI recommendations to follow, depending on clinical course. Problem List: 1. Gallstone pancreatitis 2. LUQ abdominal pain 3. Elevated LFTs 4. Fatty liver 5. Hepatic cyst 6. Diverticulosis of colon Copies To: Brandon Maya MD; Pk TRIPATHI,Too De; Andrae Otero DO; Josefina TRIPATHI, Vinod Abad; Mario TRIPATHI,Chico Rai. Consult Acknowledgment - Thank you for your consult request.
[2018-05-16 14:52] VITALS: BP 162/90
--- NOTE | 2018-05-16 17:33 | ULTRASOUND REPORT ---
EXAMINATION: US ABDOMEN LIMITED CLINICAL INFORMATION: Elevated LFTs. COMPARISON: Same-day CT TECHNIQUE: Real-time imaging of the right upper quadrant abdominal viscera. The pump room operator comments the study is somewhat limited by patient body habitus. FINDINGS: PANCREAS: Normal. LIVER: Diffusely increased in echotexture. Hypoechoic areas adjacent to the gallbladder fossa are consistent with fatty sparing. No focal lesion or intrahepatic biliary duct dilatation. GALLBLADDER: Cholecystectomy. COMMON BILE DUCT: Normal in caliber measuring 0.6 cm in diameter. RIGHT KIDNEY: Within the upper pole of the right kidney there is a mostly anechoic structure with back wall enhancement measuring 2.6 x 2.1 x 2.0 cm. A similar finding is noted along the posterior wall measuring 3.1 x 2.8 x 2.9 cm. There is back wall enhancement and no associated color flow. Finding is partially exophytic. No hydronephrosis. No renal calculi or focal parenchymal lesions. The kidney measures 12.7 cm in maximum dimension. FREE FLUID: None. IMPRESSION: 1. Echogenic liver suggesting underlying hepatic steatosis. 2. Unremarkable gallbladder fossa. 3. 2 exophytic cysts of the upper pole the right kidney. No hydronephrosis.
[2018-05-16 21:36] LABS: ABSOLUTE BASOPHIL COUNT 0 /CUMM (0.0-0.2); ABSOLUTE EOSINOPHIL COUNT 0.2 /CUMM (0.0-0.7); ABSOLUTE GRANULOCYTE CT 4.8 /CUMM (1.4-6.5); ABSOLUTE LYMPH COUNT 0.9 /CUMM (1.2-3.4); ABSOLUTE MONOCYTE COUNT 0.5 /CUMM (0.10-0.60); BASOPHIL % 0.4 % (0.0-2.0); EOSINOPHIL % 2.9 % (0-5); GRANULOCYTE % 75.1 % (42.2-75.2); HEMATOCRIT 40.7 % (42-52); MEAN CORPUSCULAR HGB 28.8 PG (27.0-31.0); MEAN CORPUSCULAR HGB CONC 33.2 G/DL (33.0-37.0); MEAN CORPUSCULAR VOLUME 86.9 FL (80.0-94.0); MEAN PLATELET VOLUME 8.3 FL (7.4-10.4); PLATELET COUNT 311 /CUMM (130-400); RBC DISTRIBUTION WIDTH 15.1 % (11.5-14.5); RED BLOOD CELL CT 4.68 /CUMM (4.70-6.10); WHITE BLOOD CELL COUNT 6.3 /CUMM (4.8-10.8)
[2018-05-16 22:19] VITALS: BP 180/90
[2018-05-17 06:15] VITALS: BP 140/78
--- NOTE | 2018-05-17 07:34 | PN- Housestaff ---
See Addendum Anitha Rizvi 05/17/18 0734: Subjective Follow-up For: ?Choledocolithiasis Subjective: The patient was seen and examined at bedside. He says he has not had the pain for almost 30 hours now. Today, he denies correlation of the pain with food. He does complain of a slight headache. He says he is "in good spirits" presently. He is NPO and due for MRCP at 11AM. He denies fever, chills, nausea, vomiting, dizizness. Review of Systems Constitutional: Reports: see HPI. Objective Last 24 Hrs of Vital Signs/I&O Vital Signs Date Time Temp Pulse Resp B/P B/P Pulse O2 O2 Flow FiO2 Mean Ox Delivery Rate 05/17 0615 97.8 67 20 140/78 95 Room Air 05/16 2219 98.3 77 20 180/90 96 Room Air 05/16 1452 98.6 77 20 162/90 96 Room Air Intake & Output 05/17 1600 05/17 0800 05/17 0000 Intake Total 1600 640 Output Total 200 1225 350 Balance -200 375 290 Intake, IV 1600 400 Intake, Oral 240 Output, Urine 200 1225 350 Physical Exam General Appearance: Alert, Oriented X3, Cooperative, No Acute Distress Skin: No Rashes Neck: Supple Cardiovascular: Regular Rate, Normal S1, Normal S2 Lungs: Clear to Auscultation Abdomen: Normal Bowel Sounds, Soft, No Tenderness Extremities: No Edema Assessment/Plan Assessment: 68-year-old man PMH HTN BPH, recently admitted for acute cholecystitis status post cholecystectomy with CLARIBEL drain placement and subsequent removal seen for evaluation of recurrent left upper quadrant abdominal pain. Has elevations in bilirubin, LFTs, Lipase, concerning for a retained stone, although during patient interview apparently had immediate cessation of pain while in the ED, which likely is the stone passing. CT did not show any evidence of stone or duct dilatation. Problem List: 1.Transaminitis 2.Elevated Lipase 3.Increased bilirubin 4.Suspected choledocholithiasis 1.Choledocholithiasis -NPO for MRCP. Will advance diet after procedure. -GI consult aprreciated. Will follow up recs. * Bilirubin:1.1, Direct bilirubin:0.6 * AST/ALT: 161/527 * Alkaline phosphatase:230 * CRP: 6.7 * Will watch out for hemoconcentration by checking for rise in Hb and BUN * MRCP at 11 AM today -Pain control as needed; nausea control as needed -ERCP on Thursday 2.Elevated Lipase -NPO at this point -Will follow up with the results of MRCP and potential ERCP DVT PPx - ALPS no heparin if OR IV Access NPO Full Code Dispo likely to home Problem List: 1. Transaminitis 2. Hypertension 3. BPH (benign prostatic hyperplasia) 4. Elevated lipase Pain Ratin Pain Location: na Pain Goal: Remain pain free Pain Plan: na Tomorrow's Labs & Rationales: cbc and bep ValleMaya limonnicole 05/17/18 1545: Attending MD Review Statement Attending Statement Attending MD Statement: examined this patient, discuss w/resident/PA/SENIOR ASIC DESIGN ENGINEER, agreed w/resident/PA/SENIOR ASIC DESIGN ENGINEER, discussed with family, reviewed EMR data (avail), discussed with nursing, discussed with case mgmt Attending Assessment/Plan: LFTs trending down and bili normalized. MRCP showing no cbd dilatation or stones. will d/w GI the results and further care plan based on GI recommendations.
[2018-05-17 10:28] LABS: PT 12.8 SEC (9.4-12.5)
[2018-05-17 10:52] LABS: ABSOLUTE BASOPHIL COUNT 0 /CUMM (0.0-0.2); ABSOLUTE EOSINOPHIL COUNT 0.1 /CUMM (0.0-0.7); ABSOLUTE GRANULOCYTE CT 4.4 /CUMM (1.4-6.5); ABSOLUTE MONOCYTE COUNT 0.5 /CUMM (0.10-0.60); BASOPHIL % 0.3 % (0.0-2.0); EOSINOPHIL % 1.5 % (0-5); GRANULOCYTE % 73.4 % (42.2-75.2); HEMATOCRIT 40.9 % (42-52); MEAN CORPUSCULAR HGB 28.9 PG (27.0-31.0); MEAN CORPUSCULAR HGB CONC 32.8 G/DL (33.0-37.0); MEAN CORPUSCULAR VOLUME 87.9 FL (80.0-94.0); MEAN PLATELET VOLUME 8.5 FL (7.4-10.4); PLATELET COUNT 291 /CUMM (130-400); RBC DISTRIBUTION WIDTH 15.2 % (11.5-14.5); RED BLOOD CELL CT 4.65 /CUMM (4.70-6.10)
[2018-05-17 13:53] VITALS: BP 162/78
--- NOTE | 2018-05-17 15:09 | MRI REPORT ---
EXAMINATION: MR ABDOMEN WITHOUT CONTRAST/MRCP CLINICAL INFORMATION: Please perform MRCP per GI recommended. Rule out cholangitis. Patient with history of recent cholecystectomy for acute cholecystitis (05/08/2018). COMPARISON: Right upper quadrant abdominal ultrasound dated 05/16/2018 and 05/08/2018. CT scan of the abdomen and pelvis dated 05/16/2018, 05/08/2018 and 08/16/2017. TECHNIQUE: An MRI scan of the abdomen was performed using multiple imaging sequences and imaging planes. As per the MRCP protocol, heavily T2-weighted 3-D high-resolution MRCP sequences were obtained in the coronal plane along with thin and thick slab coronal images and coronal MIP reconstructions obtained on the technologist workstation under concurrent physician supervision. FINDINGS: LIVER: The liver is normal in size and signal. No hepatic steatosis is seen. As noted on prior imaging, there are 2 T2 bright cysts in the left lobe of the liver, measuring approximately 1 cm in segment 2 (series 4, image 10) and 1.4 cm in central segment 8 (series 4, image 6). The liver is otherwise unremarkable. GALLBLADDER/BILIARY TREE: The patient is status post cholecystectomy. No intra or extrahepatic ductal dilatation is seen. The common bile duct is normal in size, measuring 0.3 cm and is well visualized down to the ampullary segment with no abnormal filling defects seen. No intrahepatic ductal dilatation is seen. The cystic duct remnant appears unremarkable. There is no significant fluid collection in the gallbladder fossa. PANCREAS: The pancreas is normal in appearance. The pancreatic duct is normal in caliber. No ductal dilatation, mass or surrounding stranding is seen. SPLEEN: Normal size and appearance. Splenic vein patent. ADRENAL GLANDS AND KIDNEYS: Adrenal glands normal. Kidneys bilaterally symmetric in size. There are at least 3 right renal cortical cysts, including a 0.7 cm upper pole cyst, a exophytic 3.1 x 2.6 cm interpolar region cyst and a 2.8 x 2.1 cm exophytic upper pole cyst. In the upper pole of the left kidney, a exophytic T1 dark and mildly T1 hyperintense 0.9 cm diameter mass is seen, corresponding to the hyperdense mass seen on prior CT scan from 08/16/2017, consistent with a hemorrhagic cyst. There is also a tiny approximately 1 cm mid left renal T2 bright cyst. No suspicious focal mass or hydronephrosis. Minimal perinephric edema is seen, left greater than right. BOWEL LOOPS: Grossly within normal limits. LYMPHOVASCULAR STRUCTURES: Abdominal aorta normal in caliber. No periaortic collections. No abdominal adenopathy or free fluid collection. BONES: There is multilevel mild to moderate degenerative disc disease in the lumbar spine. IMPRESSION: 1. The intra and extrahepatic bile ducts are normal with no abnormal filling defects seen to suspect choledocholithiasis or biliary obstruction. 2. Cystic duct remnant is unremarkable status post cholecystectomy. No focal fluid collection seen in the gallbladder fossa. 3. Hepatic and bilateral renal cysts again noted, including a hyperintense upper pole left renal cyst, consistent with a hemorrhagic cyst.
--- NOTE | 2018-05-17 17:45 | Patient Discharge Instructions ---
Discharge Instructions General Discharge Information You were seen/treated for: Presumed Gallstone pancreatitis You had these procedures: 1. USG of the Abdomen 2. CT scan of the abdomen 3. MRCP Watch for these problems: 1. Please come to the ED promptly if you notice severe abdominal pain, loss of appetite, excesisve nausea and vomiting Special Instructions: 1. Please see within a few days to a week of your discharge. 2. Please take a low fat diet. Acute Coronary Syndrome Inclusion Criteria At DC or during hospital stay patient has or had the following: ACS DIAGNOSIS No Discharge Core Measures Meds if any: Prescribed or Continued at Discharge Meds if any: NOT Prescribed or Continued at Discharge Congestive Heart Failure Inclusion Criteria At DC or during hospital stay patient has or had the following: CHF DIAGNOSIS No Discharge Core Measures Meds if any: Prescribed or Continued at Discharge Meds if any: NOT Prescribed or Continued at Discharge Cerebrovascular accident Inclusion Criteria At DC or during hospital stay patient has or had the following: CVA/TIA Diagnosis No Discharge Core Measures Meds if any: Prescribed or Continued at Discharge Meds if any: NOT Prescribed or Continued at Discharge Venous thromboembolism Inclusion Criteria VTE Diagnosis No VTE Type NONE VTE Confirmed by (Test) NONE Discharge Core Measures - Per Current guidelines, there needs to be overlap - treatment for the first 5 days of Warfarin therapy. - If discharged on Warfarin prior to 5 days of - overlap therapy, the patient will need to be - assessed for post discharge needs including - *Post discharge parental anticoagulation - *Warfarin and/or parental anticoagulation education - *Follow up date to check INR post discharge At least 5 days overlap therapy as Inpatient No Meds if any: Prescribed or Continued at Discharge Note: Overlap Therapy is Warfarin and Anticoagulant Meds if any: NOT Prescribed or Continued at Discharge
--- NOTE | 2018-05-17 21:00 | PN- Gastroenterology ---
Assessment/Plan GI Assessment/Recommendations: 68 y/o male, HTN, non-DM, non-HLD, mildly obese, BPH (benign prostate bx ), seasonal allergies, lactose intolerance, PCN-allergy, recently admitted to Dr. Otero's surgical service at [facility] from 05/08/18 to 05/09/18, for LUQ pain, at which time, preop RUQ sono/CT AP showed gallbladder wall thickening, suggestive of cholecystitis. *The patient had normal LFTs & normal lipase preop, on 05/08/18, albeit with WBC 15K. The patient was put on IV antibiotics and underwent 05/08/18: lap CCKY with CLARIBEL drain placement (without IOC). The patient was found to have a thick-walled/ necrotic gallbladder with multiple small stones, and a necrotic cystic duct. Surgical pathology revealed severe acute ulcerative necrotizing cholecystitis & cholelithiasis. He was discharged on POD#1 1 on a 7 day course of Cipro/Flagyl, which he had almost completed. His CLARIBEL drain had been removed in the surgical office, a few days postop. The patient noted recurrent LUQ pain Stephen evening, 05/14/18, after he ate scallops at home, similar to his initial symptoms 1 week prior. He denied eating any fatty foods since his CCKY. He denied any fevers, but noted occasional chills since his CCKY (which were present preop, as well). He had no sx of UTI or URI. His LUQ pain radiated to his left mid-upper back. There was no positional component. The pain had since resolved. He denied any CP or SOB. He denied any nausea, vomiting, reflux, odynophagia, dysphagia, early satiety, hematemesis, melena, confusion, jaundice, dark urine, light stools, or pruritus. He denied any NSAIDS, cigarettes, EtOH, illicit drugs, hx hepatitis, or blood transfusions. He noted minimal diarrhea (semi-formed stools), which he attributed to his antibiotics. He denied any constipation, obstipation, tenesmus, change in stool caliber, or rectal bleeding. He claimed he had a GI workup done in [place], [place] > 30 years ago, & was told of "lactose intolerance". His baseline & only colonoscopy then was "normal". He has been admittedly delinquent with a follow-up screening colonoscopy since. He denied any weight loss (aside from perhaps a few pounds in the perioperative period), or change in appetite. In fact, he was hungry. He arrived at the [facility] ER 05/15/18 at 11:44 p.m., for the LUQ pain (which had already resolved), at which point, he was HTN, with BP 182/85, P 83, R 18, T 98.3, O2 sat RA 98%. He did not spike any fevers there. He was given IVF & Cozaar for his BP. He was found to have elevated LFTs and elevated lipase in the ER (*see below), with normal WBC & normal GFR. The ER had contacted the surgical service (Dr. Rocha covering for Dr. Otero), and myself. They were made aware of the current logistical limitations at [facility], regarding availability of MRCP & ERCP, & the patient was admitted with a presumed diagnosis of gallstone pancreatitis. There was no FHx GI Ca, GBD, PUD, pancreatitis, or inherited liver disease. 05/08/18: EKG- NSR @ 74, LAD, IRBBB, LVH, PRWP. 05/08/18: CT ABDOMEN AND PELVIS WITHOUT IV or PO CONTRAST (per [facility] ER)- - No evidence of urolithiasis or urinary tract obstruction. B/L renal cysts. - Colonic diverticulosis without diverticulitis. Normal AP. -Possible noncalcified stones within the lumen of the gallbladder. Gallbladder wall appears mildly thickened and there is subtle haziness of pericholecystic fat. These findings require clinical correlation. The provided history is that of left-sided pain. However, if the patient has right-sided pain (particularly a Alan's sign), then acute cholecystitis should be considered. Recommend ultrasound evaluation of the gallbladder. Nodilated ducts. Liver cysts at hepatic dome & left lobe liver, up to 1.1 cm. - Markedly enlarged prostate gland. - Mild ASHD of aorta without AAA. - DJD L-spine with mild dextrocurvature. 05/08/18: US-LIMITED RUQ ABDOMEN- Cholelithiasis with gallbladder wall thickening and fluid within the gallbladder wall consistent with acute cholecystitis however patient does not have tenderness to palpation overlying the gallbladder however patient is medicated. Normal CBD 2 mm. No pericholecystic fluid. Fatty infiltration of the liver. No focal hepatic mass. Right renal cysts. 05/16/18: CT ABD & PELVIS W IV CONTRAST- Status post cholecystectomy with trace fluid in the operative bed. Surgical clips are present. No radiopaque stone seen. No ductal dilatation. Normal liver. Marked prostatomegaly. Right renal cysts. 05/16/18: EKG- NSR @ 76, LAD, IRBBB, LVH, PRWP. 05/16/18: 0200- WBC 8.0 (no left shift), H/H 14.5/44.1, MCV 88.1, RDW 15.2, PLT 309, glucose 126, BUN/Cr 14/0.6, GFR > 60, Na 137, K 4.7, HCO3 31, AG 6, lactate 1.5, amylase 268, lipase 4277, Ca 9.1, albumin 4.1, globulin 2.6, TBil 3.0, DBil 2.4, alk phos 226, AST 733, ALT 836, troponin < 0.01 (no U/A or coags sent). *As of 05/16/18, although the patient appeared relatively stable, he clinically and historically had gallstone pancreatitis, post 05/08/18: lap CCKY. His elevated LFTs were noted. He had nothing clinically, nor by labs, to suggest cholangitis. *Having stated that, he had been on Cipro & Flagyl for the past week, & so it is possible that a cholangitis could have been "masked". He did have some outpt chills, which subsided. His LUQ pain had resolved. He reportedly is PCN allergic. When I was contacted at approximately 4:30 a.m. on 05/16/18, the ER had been made aware of the current logistical limitations, namely that MRCP was not available at [facility] on 05/16/18 or on 05/18/18, & that ERCP was not available here until 05/18/18. Nevertheless, the patient was admitted to [facility], with the understanding that if he decompensated during this interval, that he would potentially have to transferred to another institution, for the necessary tests. There is a possibility that he could have already passed some stone or sludge from the CBD. *On admission, the patient had 2 grave signs by Hiral criteria, namely advanced age & AST, but no LDH was sent. On admission, he had 1 grave sign on admission by BiSAP criteria, namely advanced age, but no CXR was done to rule out pleural effusions. *Consider adding LDH to the original admit labs of 05/16/18 & getting a CXR. 05/17/18: MR ABDOMEN WITHOUT CONTRAST/MRCP- 1. The intra and extrahepatic bile ducts are normal with no abnormal filling defects seen to suspect choledocholithiasis or biliary obstruction. CBD 3 mm. 2. Cystic duct remnant is unremarkable status post cholecystectomy. No focal fluid collection seen in the gallbladder fossa. 3. Hepatic and bilateral renal cysts again noted, including a hyperintense upper pole left renal cyst, consistent with a hemorrhagic cyst. No hepatic steatosis seen. 05/16/18: BC x 2- neg. 05/16/18: 1245-BN/Cr 10/0.6, GFR > 60, Na 139, K 4.3, HCO3 27, AG 8, nl amylase 89, nl lipase 193, albumin 3.7, globulin 2.5, TBil 3.0, DBil 2.4, alk phos 238, AST 449, ALT 730, *LDH 1050, *CRP 1.3 05/16/18: 2050-WBC 6.3, H/H 13.5/40.7, PLT 311 05/17/18: 0901-WBC 6.0, H/H 13.4/40.9, PLT 291, PT 12.8, INR 1.17, BUN/Cr 9/0.5, GFR > 60, Na 136, K 4.4,HCO3 27, AG 7, nl amylase 60, nl lipase 57, albumin 3.5, globulin 2.7, TChol 178, *TG 84, HDL 71, LDL 91, TBil 1.1, DBil 0.6, alk phos 230, AST 161, ALT 527, HgbA1C 6.0. *As of 05/17/18, the patient was hemodynamically stable (albeit, mildly HTN) and afebrile, with O2 sat 96% RA. His LFTs were improving. His lipase had normalized. He had absolutely no GI complaints, whatsoever. He denied any fevers, chills, abdominal pain, nausea, vomiting, jaundice, confusion, CP, or SOB. As his MRCP showed a normal CBD, he was started on a 2g Na+ low-fat diet. He tolerated salmon uneventfully. He was ambulating in no distress. I had spoken with my partner, Dr. Brodie Edmonds, regarding potential ERCP. As the MRCP was normal, the patient was post CCKY, & his LFTs continued to decline, the feeling was that the patient did not need an empiric papillotomy. His BC remained negative. His IVF & abx were D/C'd. He was anxious to go home. *SUGGEST- 2g Na+ low fat diet. *Okay to discharge to home this evening from a GI perspective. No need for antibiotics. ERCP canceled, based on declining LFTs, negative MRCP, and clinical course. The patient told me he will be establishing himself with his new PMD, Dr. Martin, on 05/28/18. I asked him to send me a copy of his labs from then, specifically, his LFTs, which hopefully will continue to normalize. The incidental fatty liver (noted on only some of the imaging studies) & incidental hepatic cysts were discussed with the patient. Once the patient is discharged, I advised risk factor modification for the fatty liver, including weight reduction & strict control of BP, lipids, glucose, etc. There was no hx of significant EtOH. He may benefit from outpt Vitamin E 800 IU po daily, for it's antioxidant effect. *The patient was also made aware that he was way overdue for a screening colonoscopy (baseline & only colonoscopy in [place], [place] > 30 years ago- "normal"), & I gave him my office number for future reference, after his immediate issues are taken care of. He should ultimately be on fiber supplements for his incidental diverticulosis coli as an outpt. The above was discussed in detail with the patient, the patient's , Olesya, at the bedside (per patient request), & with the medical housestaff. Problem List: 1. Gallstone pancreatitis 2. LUQ abdominal pain 3. Elevated LFTs 4. Fatty liver 5. Hepatic cyst 6. Diverticulosis of colon Subjective Subjective: 05/17/18: MR ABDOMEN WITHOUT CONTRAST/MRCP- 1. The intra and extrahepatic bile ducts are normal with no abnormal filling defects seen to suspect choledocholithiasis or biliary obstruction. CBD 3 mm. 2. Cystic duct remnant is unremarkable status post cholecystectomy. No focal fluid collection seen in the gallbladder fossa. 3. Hepatic and bilateral renal cysts again noted, including a hyperintense upper pole left renal cyst, consistent with a hemorrhagic cyst. No hepatic steatosis seen. 05/16/18: BC x 2- neg. 05/16/18: 1245-BN/Cr 10/0.6, GFR > 60, Na 139, K 4.3, HCO3 27, AG 8, nl amylase 89, nl lipase 193, albumin 3.7, globulin 2.5, TBil 3.0, DBil 2.4, alk phos 238, AST 449, ALT 730, *LDH 1050, *CRP 1.3 05/16/18: 2050-WBC 6.3, H/H 13.5/40.7, PLT 311 05/17/18: 0901-WBC 6.0, H/H 13.4/40.9, PLT 291, PT 12.8, INR 1.17, BUN/Cr 9/0.5, GFR > 60, Na 136, K 4.4,HCO3 27, AG 7, nl amylase 60, nl lipase 57, albumin 3.5, globulin 2.7, TChol 178, *TG 84, HDL 71, LDL 91, TBil 1.1, DBil 0.6, alk phos 230, AST 161, ALT 527, HgbA1C 6.0. *As of 05/17/18, the patient was hemodynamically stable (albeit, mildly HTN) and afebrile, with O2 sat 96% RA. His LFTs were improving. His lipase had normalized. He had absolutely no GI complaints, whatsoever. He denied any fevers, chills, abdominal pain, nausea, vomiting, jaundice, confusion, CP, or SOB. As his MRCP showed a normal CBD, he was started on a 2g Na+ low-fat diet. He tolerated salmon uneventfully. He was ambulating in no distress. I had spoken with my partner, Dr. Brodie Edmonds, regarding potential ERCP. As the MRCP was normal, the patient was post CCKY, & his LFTs continued to decline, the feeling was that the patient did not need an empiric papillotomy. His BC remained negative. His IVF & abx were D/C'd. He was anxious to go home. Review of Systems: Full 14 point ROS otherwise noncontributory, & as above. Review of Systems Constitutional: Reports: chills (resolved). Denies: diaphoresis, fever, malaise, weakness, unexplained weight loss. EENTM: Denies: blurred vision, double vision, visual changes, eye pain, eye drainage, eye tearing, icterus, ear discharge, ear pain, ear redness, hearing changes, nasal congestion, epistaxis, nasal pain, throat pain, throat swelling, mouth pain, tooth pain. Cardiovascular: Denies: chest pain, edema, orthopena, palpitations, peripheral edema, syncope. Respiratory: Denies: cough, hemoptysis, orthopnea, short of breath, sputum production, stridor, wheezing. GI: Reports: abdominal pain (LUQ-> back; resolved), diarrhea (semiformed stools, post abx). Denies: bloating, constipation, distention, bowel incontinence, melena, nausea, bloody stool, changes in stool, vomiting, steatorrhea. Genitourinary: Reports: frequency (BPH), hesitation (BPH), nocturia (BPH). Denies: discharge, dysuria, hematuria, pain, urgency. Musculoskeletal: Denies: back pain, gout, joint pain, joint swelling, muscle pain, muscle stiffness, neck pain. Skin: Denies: cysts, change in skin color, change in hair/nails, dryness, erythema, jaundice, lesions, lymphangitis, lumps, moles, rash. Neurological/Psychological: Denies: anxiety, ataxia, cognitive dysfunction, confusion, depressed, dementia, emotional problems, headache, numbness, paresthesia, pre-existing deficit, petit mal seizures, tingling, tremors, tonic-clonic seizures, unable to move lower ext , unable to move upper ext, weakness. Hematologic/Endocrine: Denies: bruising, bleeding, polyuria, polydipsia. Immunologic/Allergic: Denies: splenectomy, HIV/AIDS, lymphadenopathy. All Other Systems: Reviewed and Negative Objective Vital Signs and I&Os Vital Signs Date Time Temp Pulse Resp B/P B/P Pulse O2 O2 Flow FiO2 Mean Ox Delivery Rate 05/17 1353 98.1 68 20 162/78 96 Room Air 05/17 1143 68 150/78 05/17 0615 97.8 67 20 140/78 95 Room Air 05/16 2219 98.3 77 20 180/90 96 Room Air Intake & Output 05/17 1600 05/17 0400 05/16 1600 05/16 0400 05/15 1600 05/15 0400 Intake Total 2900 640 610 Output Total 1425 350 Balance 1475 290 610 Intake, IV 2900 400 610 Intake, Oral 240 Number 1 Bowel Movements Output, Urine 1425 350 Patient 237 lb 230 lb Weight Weight Bed scale Measurement Method Physical Exam: Well-developed, well-nourished patient, pleasant, slightly obese male, in no apparent distress. Sclera now anicteric. Conjunctiva pink. Oropharynx clear. No oral thrush. There is no adenopathy, thyromegaly, or JVD. No peripheral stigmata of inflammatory bowel disease or chronic liver disease on exam. No spiders on the anterior chest wall. No gynecomastia. No CVA tenderness. No spine tenderness. Mild lumbar dextroscolisosis. Lungs: clear to A&P, with slight decreased BS at the bases B/L. No wheezing, rales, or rhonchi. Heart exam: regular rate rhythm, S1 and S2, without any murmur. Abdominal exam: normal bowel sounds, soft slightly obese belly, currently nontender, without guarding or rebound. Well healed port sites (post 05/08/18: lap CCKY). No mass. No organomegaly. No fluid shift. No pulsatile mass. No epigastric bruit. Digital rectal exam: deferred by patient ("done at urology"). Extremities without C, C, or E. No palpable cords. No rash. Minimal DJD. No palmar erythema. No Dupuytren 's contractures. Distal pulses 2+ bilaterally. DTRs 2+ bilaterally. Right handed. CN II-XII intact. Motor 5/5 B/L. Alert and oriented x 3. No tremor. No asterixis. Current Medications: Current Medications Sig/Ziggy Start time Last Medication Dose Route Stop Time Status Admin Ciprofloxacin 400 MG Q12 05/16 2100 AC 05/17 Dextrose/Water 200 ML IV 1140 Ibuprofen 400 MG ONCE ONE 05/165 DC 05/16 PO 05/16 214 2356 Lactated Ringer's 1,000 ML .Q5H 05/16 1845 DC 05/17 IV 05/17 0944 0434 Lactobacillus 1 CAP BID 05/16 2100 AC 05/17 Acidophilus PO 1143 Losartan Potassium 100 MG DAILY 05/17 0900 AC 05/17 PO 1143 Melatonin 10 MG AT BEDTIME 05/16 2145 AC 05/16 PO 2356 Metronidazole 500 MG IQ8 05/17 0000 AC 05/17 N/A 1 UNIT IV 1631 Oxycodone/ 1 TAB Q6P PRN 05/16 0515 AC Acetaminophen PO Sodium Chloride 2 SPRAY Q4P PRN 05/16 2145 AC KASHMIR Tamsulosin HCl 0.8 MG AT BEDTIME 05/16 2100 AC 05/16 PO 2129 Results Pertinent Lab Results: Laboratory Tests 05/17 Chemistry Sodium (137 - 145 mmol/L) 136 L Potassium (3.5 - 5.1 mmol/L) 4.4 Chloride (98 - 107 mmol/L) 102 Carbon Dioxide (22 - 30 mmol/L) 27 Anion Gap (5 - 16) 7 BUN (9 - 20 mg/dL) 9 Creatinine (0.7 - 1.2 mg/dL) 0.5 L Estimated GFR (>60 ml/min) > 60 BUN/Creatinine Ratio (7 - 25 %) 18.0 Hemoglobin A1c (4.2 - 5.8 %) 6.0 H Total Bilirubin (0.2 - 1.3 mg/dL) 1.1 Direct Bilirubin (< 0.4 mg/dL) 0.6 H AST (17 - 59 U/L) 161 H ALT (21 - 72 U/L) 527 H Alkaline Phosphatase (< 127 U/L) 230 H C-React Prot High Sens (1.0 - 3.0 mg/L) 6.7 H Total Protein (6.3 - 8.2 g/dL) 6.2 L Albumin (3.5 - 5.0 g/dL) 3.5 Triglycerides (<150 mg/dL) 84 Cholesterol (< 200 MG/DL) 178 LDL Cholesterol, Calc (65 - 129 mg/dL) 91 HDL Cholesterol (40 - 60 mg/dL) 71 H Cholesterol/HDL Ratio (0.00 - 4.88 %) 2 Amylase (30 - 110 U/L) 60 Lipase (23 - 300 U/L) 57 Coagulation PT (9.4 - 12.5 SEC) 12.8 H INR (0.90 - 1.17) 1.17 Hematology CBC w Diff NO MAN DIFF REQ NO MAN DIFF REQ WBC (4.8 - 10.8 /CUMM) 6.0 6.3 RBC (4.70 - 6.10 /CUMM) 4.65 L 4.68 L Hgb (14.0 - 18.0 G/DL) 13.4 L 13.5 L Hct (42 - 52 %) 40.9 L 40.7 L MCV (80.0 - 94.0 FL) 87.9 86.9 MCH (27.0 - 31.0 PG) 28.9 28.8 MCHC (33.0 - 37.0 G/DL) 32.8 L 33.2 RDW (11.5 - 14.5 %) 15.2 H 15.1 H Plt Count (130 - 400 /CUMM) 291 311 MPV (7.4 - 10.4 FL) 8.5 8.3 Gran % (42.2 - 75.2 %) 73.4 75.1 Lymphocytes % (20.5 - 51.1 %) 17.0 L 14.2 L Monocytes % (1.7 - 9.3 %) 7.8 7.4 Eosinophils % (0 - 5 %) 1.5 2.9 Basophils % (0.0 - 2.0 %) 0.3 0.4 Absolute Granulocytes (1.4 - 6.5 /CUMM) 4.4 4.8 Absolute Lymphocytes (1.2 - 3.4 /CUMM) 1.0 L 0.9 L Absolute Monocytes (0.10 - 0.60 /CUMM) 0.5 0.5 Absolute Eosinophils (0.0 - 0.7 /CUMM) 0.1 0.2 Absolute Basophils (0.0 - 0.2 /CUMM) 0 0 05/16 05/16 05/16 1245 0437 0200 Chemistry Sodium (137 - 145 mmol/L) 139 137 Potassium (3.5 - 5.1 mmol/L) 4.3 4.7 Chloride (98 - 107 mmol/L) 105 100 Carbon Dioxide (22 - 30 mmol/L) 27 31 H Anion Gap (5 - 16) 8 6 BUN (9 - 20 mg/dL) 10 14 Creatinine (0.7 - 1.2 mg/dL) 0.6 L 0.6 L Estimated GFR (>60 ml/min) > 60 > 60 BUN/Creatinine Ratio (7 - 25 %) 16.7 23.3 Glucose (65 - 99 mg/dL) 126 H Lactic Acid (0.7 - 2.1 mmol/L) Cancelled 1.5 Calcium (8.4 - 10.2 mg/dL) 9.1 Total Bilirubin (0.2 - 1.3 mg/dL) 3.0 H 3.0 H Direct Bilirubin (< 0.4 mg/dL) 2.4 H 2.4 H AST (17 - 59 U/L) 449 H 733 H ALT (21 - 72 U/L) 730 H 836 H Alkaline Phosphatase (< 127 U/L) 238 H 226 H Lactate Dehydrogenase (313 - 618 U/L) 1050 H Troponin I (<0.11 ng/ml) < 0.01 C-Reactive Prot, Quant (<1.0 mg/dL) 1.3 H Total Protein (6.3 - 8.2 g/dL) 6.2 L 6.7 Albumin (3.5 - 5.0 g/dL) 3.7 4.1 Globulin (1.9 - 4.2 gm/dL) 2.6 Albumin/Globulin Ratio (1.1 - 2.2 %) 1.6 Amylase (30 - 110 U/L) 89 268 H Lipase (23 - 300 U/L) 193 4277 H Hematology CBC w Diff NO MAN DIFF REQ WBC (4.8 - 10.8 /CUMM) 8.0 RBC (4.70 - 6.10 /CUMM) 5.01 Hgb (14.0 - 18.0 G/DL) 14.5 Hct (42 - 52 %) 44.1 MCV (80.0 - 94.0 FL) 88.1 MCH (27.0 - 31.0 PG) 28.9 MCHC (33.0 - 37.0 G/DL) 32.8 L RDW (11.5 - 14.5 %) 15.2 H Plt Count (130 - 400 /CUMM) 309 MPV (7.4 - 10.4 FL) 8.4 Gran % (42.2 - 75.2 %) 73.1 Lymphocytes % (20.5 - 51.1 %) 12.8 L Monocytes % (1.7 - 9.3 %) 11.4 H Eosinophils % (0 - 5 %) 2.5 Basophils % (0.0 - 2.0 %) 0.2 Absolute Granulocytes (1.4 - 6.5 /CUMM) 5.8 Absolute Lymphocytes (1.2 - 3.4 /CUMM) 1.0 L Absolute Monocytes (0.10 - 0.60 /CUMM) 0.9 H Absolute Eosinophils (0.0 - 0.7 /CUMM) 0.2 Absolute Basophils (0.0 - 0.2 /CUMM) 0 Imaging/Other Studies: 05/08/18: EKG- NSR @ 74, LAD, IRBBB, LVH, PRWP. 05/08/18: CT ABDOMEN AND PELVIS WITHOUT IV or PO CONTRAST (per [facility])- - No evidence of urolithiasis or urinary tract obstruction. B/L renal cysts. - Colonic diverticulosis without diverticulitis. Normal AP. -Possible noncalcified stones within the lumen of the gallbladder. Gallbladder wall appears mildly thickened and there is subtle haziness of pericholecystic fat. These findings require clinical correlation. The provided history is that of left-sided pain. However, if the patient has right-sided pain (particularly a Alan's sign), then acute cholecystitis should be considered. Recommend ultrasound evaluation of the gallbladder. Nodilated ducts. Liver cysts at hepatic dome & left lobe liver, up to 1.1 cm. - Markedly enlarged prostate gland. - Mild ASHD of aorta without AAA. - DJD L-spine with mild dextrocurvature. 05/08/18: US-LIMITED RUQ ABDOMEN- Cholelithiasis with gallbladder wall thickening and fluid within the gallbladder wall consistent with acute cholecystitis however patient does not have tenderness to palpation overlying the gallbladder however patient is medicated. Normal CBD 2 mm. No pericholecystic fluid. Fatty infiltration of the liver. No focal hepatic mass. Right renal cysts. 05/08/18: LAP CCKY- Severe acute ulcerative necrotizing cholecystitis & cholelithiasis. 05/16/18: CT ABD & PELVIS W IV CONTRAST- Status post cholecystectomy with trace fluid in the operative bed. Surgical clips are present. No radiopaque stone seen. No ductal dilatation. Normal liver. Marked prostatomegaly. Right renal cysts. 08/12/18: EKG- NSR @ 76, LAD, IRBBB, LVH, PRWP. 05/17/18: MR ABDOMEN WITHOUT CONTRAST/MRCP- 1. The intra and extrahepatic bile ducts are normal with no abnormal filling defects seen to suspect choledocholithiasis or biliary obstruction. CBD 3 mm. 2. Cystic duct remnant is unremarkable status post cholecystectomy. No focal fluid collection seen in the gallbladder fossa. 3. Hepatic and bilateral renal cysts again noted, including a hyperintense upper pole left renal cyst, consistent with a hemorrhagic cyst. No hepatic steatosis seen.
--- NOTE | 2018-05-18 23:54 | Discharge Summary ---
See Addendum Visit Information Visit Dates Admission Date: 05/16/18 Discharge Date: 05/17/18 Hospital Course Course Attending Physician: Clair Singletary MD Primary Care Physician: Chico Martin MD Hospital Course: 68-year-old man PMH HTN BPH who was recently admitted for acute cholecystitis status post cholecystectomy with CLARIBEL drain placement and subsequent removal seen for evaluation of recurrent left upper quadrant abdominal pain. His physical exam at the time od addmission was essentially unremarkable. He was afebrile in the ED with a blood pressure of 182/95. Labs were significant for Total Bilirubin 3.0 , Direct Bilirubin 2.4, AST 733 , ALT 836 , Alkaline Phosphatase 226, Lipase 4277. He was admitted to the [facility] floor for evaluation and management of presumed gallstone pancreatitis. significant problems during the hospital course were: 1. RUQ Abdominal Pain -The pain was presumed to be from gallstone pancreatitis vs choledocolithiasis. -A CT scan of the abdomen showed: Status post cholecystectomy with trace fluid in the operative bed. Surgical clips are present. No radiopaque stone seen. No ductal dilatation. Normal liver.Marked prostatomegaly.Right renal cysts. -A RUQ sonoram which showed: chogenic liver suggesting underlying hepatic steatosis, an unremarkable gallbladder fossa and exophytic cysts of the upper pole the right kidney. No hydronephrosis. -The patient was contiued on Ciprofloxacin and Falagyl and was scheduled for an MRCP, which showed the following impression: * The intra and extrahepatic bile ducts are normal with no abnormal filling defects seen to suspect choledocholithiasis or biliary obstruction. * Cystic duct remnant is unremarkable status post cholecystectomy. No focal fluid collection seen in the gallbladder fossa. * Hepatic and bilateral renal cysts again noted, including a hyperintense upper pole left renal cyst, consistent with a hemorrhagic cyst. -His abdominal pain spontaneusly subsided and he did not require any analgesia in the hospital - His labs on discharge were : Bilirubin:1.1, Direct bilirubin:0.6, AST/ALT: 161 /527, Alkaline phosphatase:230 and CRP: 6.7 -The antibiotics were discontinued. -After extensive discussion with Dr. Dickey and , the decision to do an ERCP for the patient was deferred in the setting of a normal MRCP and the patient being asyptomatic. -He was given a trial of a low fat regular diet which he tolerated well and was subsequently discharged. -The patient was requested to follow up with as an outpatient and was counselled to return to the ED if he developed worsening abdominal pain, nausea, vomiting and was advised to practice a low fat diet at home Allergies: Coded Allergies: lactose (LACTOSE INTOLERANT 05/08/18) penicillin G (RASH 02/14/17) Significant Procedures: Ultrasound Abdomen: FINDINGS: PANCREAS: Normal. LIVER: Diffusely increased in echotexture. Hypoechoic areas adjacent to the gallbladder fossa are consistent with fatty sparing. No focal lesion or intrahepatic biliary duct dilatation. GALLBLADDER: Cholecystectomy. COMMON BILE DUCT: Normal in caliber measuring 0.6 cm in diameter. RIGHT KIDNEY: Within the upper pole of the right kidney there is a mostly anechoic structure with back wall enhancement measuring 2.6 x 2.1 x 2.0 cm. A similar finding is noted along the posterior wall measuring 3.1 x 2.8 x 2.9 cm. There is back wall enhancement and no associated color flow. Finding is partially exophytic. No hydronephrosis. No renal calculi or focal parenchymal lesions. The kidney measures 12.7 cm in maximum dimension. FREE FLUID: None. IMPRESSION: 1. Echogenic liver suggesting underlying hepatic steatosis. 2. Unremarkable gallbladder fossa. 3. 2 exophytic cysts of the upper pole the right kidney. No hydronephrosis. CT Abdomen and Pelvis FINDINGS: LUNG BASES: Bibasilar subsegmental atelectasis. LIVER, GALLBLADDER, AND BILIARY TREE: The liver is normal in size, shape, and attenuation. No focal hepatic lesion or biliary ductal dilatation is present. Cholecystectomy. [address] Trace fluid in the cholecystectomy bed. The common bile duct is normal in caliber with no radiopaque stones seen. PANCREAS: Unremarkable. SPLEEN: Unremarkable. ADRENAL GLANDS: Unremarkable. KIDNEYS AND URETERS: The kidneys are normal in size, shape, and attenuation. No hydronephrosis, hydroureter, or calculi seen. No perinephric stranding. Right renal cysts. BLADDER: Unremarkable. GASTROINTESTINAL TRACT: The stomach is unremarkable. The small bowel is normal in caliber. No obstruction. Fecalization of the distal ileum suggests slow transit. Normal appendix. No colonic wall thickening or inflammation. No free air or free fluid. ABDOMINAL WALL: No significant hernia is appreciated. LYMPH NODES: Normal. VASCULAR: Unremarkable. PELVIC VISCERA: The prostate is prominently enlarged. This measures 7 cm transverse. The seminal vesicles are unremarkable. OSSEOUS STRUCTURES: No acute or suspicious osseous abnormality. Multilevel degenerative changes throughout the spine. IMPRESSION: Status post cholecystectomy with trace fluid in the operative bed. Surgical clips are present. No radiopaque stone seen. No ductal dilatation. Marked prostatomegaly. -------- MRCP FINDINGS: LIVER: The liver is normal in size and signal. No hepatic steatosis is seen. As noted on prior imaging, there are 2 T2 bright cysts in the left lobe of the liver, measuring approximately 1 cm in segment 2 (series 4, image 10) and 1.4 cm in central segment 8 (series 4, image 6). The liver is otherwise unremarkable. GALLBLADDER/BILIARY TREE: The patient is status post cholecystectomy. No intra or extrahepatic ductal dilatation is seen. The common bile duct is normal in size, measuring 0.3 cm and is well visualized down to the ampullary segment with no abnormal filling defects seen. No intrahepatic ductal dilatation is seen. The cystic duct remnant appears unremarkable. There is no significant fluid collection in the gallbladder fossa. PANCREAS: The pancreas is normal in appearance. The pancreatic duct is normal in caliber. No ductal dilatation, mass or surrounding stranding is seen. SPLEEN: Normal size and appearance. Splenic vein patent. ADRENAL GLANDS AND KIDNEYS: Adrenal glands normal. Kidneys bilaterally symmetric in size. There are at least 3 right renal cortical cysts, including a 0.7 cm upper pole cyst, a exophytic 3.1 x 2.6 cm interpolar region cyst and a 2.8 x 2.1 cm exophytic upper pole cyst. In the upper pole of the left kidney, a exophytic T1 dark and mildly T1 hyperintense 0.9 cm diameter mass is seen, corresponding to the hyperdense mass seen on prior CT scan from 08/16/2017, consistent with a hemorrhagic cyst. There is also a tiny approximately 1 cm mid left renal T2 bright cyst. No suspicious focal mass or hydronephrosis. Minimal perinephric edema is seen, left greater than right. BOWEL LOOPS: Grossly within normal limits. LYMPHOVASCULAR STRUCTURES: Abdominal aorta normal in caliber. No periaortic collections. No abdominal adenopathy or free fluid collection. BONES: There is multilevel mild to moderate degenerative disc disease in the lumbar spine. IMPRESSION: 1. The intra and extrahepatic bile ducts are normal with no abnormal filling defects seen to suspect choledocholithiasis or biliary obstruction. 2. Cystic duct remnant is unremarkable status post cholecystectomy. No focal fluid collection seen in the gallbladder fossa. 3. Hepatic and bilateral renal cysts again noted, including a hyperintense upper pole left renal cyst, consistent with a hemorrhagic cyst. Disposition Summary Disposition Principal Diagnosis: Presumed Gallstone Pancreatitis Additional Diagnosis: 1. Fatty liver 2. Hepatic cyst 3.Diverticulosis of colon Discharge Disposition: home or self care Discharge Instructions General Discharge Information Code Status: Full Code Patient's Diet: Low fat diet Patient's Activity: As tolerated Follow-Up Instructions/Appts: The patient needs to follow up with within a few days to a week of his discharge Medications at Discharge Discharge Medications: Stop taking the following medications: Oxycodone HCl/Acetaminophen (Percocet 5-325 MG Tablet) 5 MG-325 MG TABLET ORAL EVERY 4-6 HOURS as needed for postop pain Qty = 18 Metronidazole (Flagyl) 500 MG TABLET ORAL TWICE DAILY Qty = 14 Ciprofloxacin HCl (Cipro) 500 MG TABLET ORAL TWICE DAILY Qty = 14 Continue taking these medications: Losartan Potassium (Losartan Potassium) 100 MG TABLET 1 Tablet ORAL DAILY Qty = 30 Comments: Last Taken:05/17/18 Time:1145AM Tamsulosin HCl (Flomax) 0.4 MG CAP.ER.24H 2 Capsule ORAL TAKE AT BEDTIME Comments: Last Taken:05/16/18 Time: 930 PM Lactobacillus Acidophilus (Probiotic) 10 BILLION CELL CAPSULE 1 Capsule ORAL DAILY Comments: Last Taken:05/17/18 Time:1145 AM Oxymetazoline HCl (Afrin) 0.05 % MIST 2 Ethel Both sides of nose GIVE ONCE Comments: NOT GIVEN IN HOSPITAL Multivitamin/Iron/Folic Acid (Centrum Adults Tablet) 18 MG IRON-400 MCG TABLET 1 Tablet ORAL DAILY Comments: NOT GIVEN IN HOSPITAL Copies To: Mario TRIPATHI,Chico Lewis
== END 2018-05-17 20:30 | DRG 395 ==
LOC: ERH 23:44 → ERHI 05-16 04:33 → 2NA 05-16 04:33 → ENRESERV 05-16 05:34 → 2NA 05-16 06:01
PROVIDERS: Internal Medicine Interventional Cardiology; Student in an Organized Health Care Education/Training Program
DX: K91.86 Retained cholelithiasis following cholecystectomy (principal); E66.9 Obesity, unspecified; Z68.31 Body mass index [BMI] 31.0-31.9, adult; M41.86 Other forms of scoliosis, lumbar region; K76.0 Fatty (change of) liver, not elsewhere classified; N40.0 Benign prostatic hyperplasia without lower urinary tract symptoms; I10 Essential (primary) hypertension; R74.0 Nonspecific elevation of levels of transaminase and lactic acid dehydrogenase [LDH]; Z88.0 Allergy status to penicillin; K76.89 Other specified diseases of liver; K57.30 Diverticulosis of large intestine without perforation or abscess without bleeding
CPT/HCPCS: 2NAP; 74181; 36415; 36592; 74177; 82436; 87040; 93005; 93010; J0744; J3490; J7060; J7120